=== PATIENT | female | born 1995 | race Caucasian/White ===

== ENCOUNTER 2018-01-04 20:19 | Emergency (ER) | payer MEDICAID ==
--- NOTE | 2018-01-04 21:28 | ER Document Report ---
ED General - General Chief Complaint: Abdominal cramps, back pain, leg cramps, weak Stated Complaint: ABDOMINAL CRAMPING Time Seen by Provider: 01/04/18 21:20 Notes: The patient is a 22-year-old female, (stillborn at 38 weeks), possibly 8 weeks , presents with pain in her right buttocks and tingling down the back of her right upper leg. She is also having diffuse cramping and feels abdominal cramping. Patient has not had an ultrasound confirming an IUP, but denies vaginal bleeding or discharge. She denies fevers, nausea, vomiting, rash , headaches, difficulty walking or back injury. TRAVEL OUTSIDE OF THE [place] IN LAST 30 DAYS: No - Related Data Allergies/Adverse Reactions: No Known Allergies Allergy (Unverified 07/16/16 18:02) Past Medical History - General Information source: Patient - Social History Smoking Status: Unknown if Ever Smoked Family History: Reviewed & Not Pertinent Past Surgical History: Reports: Hx Cholecystectomy Review of Systems - Review of Systems Notes: REVIEW OF SYSTEMS: CONSTITUTIONAL: -fevers, -chills EENT: -eye pain, -difficulty swallowing, -nasal congestion CARDIOVASCULAR: -chest pain, -syncope. RESPIRATORY: -cough, -SOB GASTROINTESTINAL: +abdominal cramping, -nausea, -vomiting, -diarrhea GENITOURINARY: -dysuria, -hematuria MUSCULOSKELETAL: +right buttock pain, +myalgias, -back pain, -neck pain SKIN: -rash or skin lesions. HEMATOLOGIC: -easy bruising or bleeding. LYMPHATIC: -swollen, enlarged glands. NEUROLOGICAL: -altered mental status or loss of consciousness, -headache, - neurologic symptoms PSYCHIATRIC: -anxiety, -depression. ALL OTHER SYSTEMS REVIEWED AND NEGATIVE. Physical Exam - Vital signs Vitals: Temp Pulse BP Pulse Ox 98.5 F 73 123/66 100 01/04/18 20:57 01/04/18 20:57 01/04/18 20:57 01/04/18 20:57 - Notes Notes: PHYSICAL EXAMINATION: GENERAL: Well-appearing, well-nourished and in no acute distress. HEAD: Atraumatic, normocephalic. EYES: Pupils equal round and reactive to light, extraocular movements intact, sclera anicteric, conjunctiva are normal. ENT: nares patent, oropharynx clear without exudates. Moist mucous membranes. NECK: Normal range of motion, supple without lymphadenopathy LUNGS: Breath sounds clear to auscultation bilaterally and equal. No wheezes rales or rhonchi. HEART: Regular rate and rhythm without murmurs ABDOMEN: Soft, nontender, normoactive bowel sounds. No guarding, no rebound. No masses appreciated. EXTREMITIES: Normal range of motion, no pitting or edema. No cyanosis. BACK: Tenderness over right SI joint. No midline tenderness. NEUROLOGICAL: Cranial nerves grossly intact. Normal speech, normal gait. Normal sensory and motor exams. PSYCH: Normal mood, normal affect. SKIN: Warm, Dry, normal turgor, no rashes or lesions noted. Course - Re-evaluation Re-evalutation: Patient appears well and is in no acute distress. Attempted bedside ultrasound to assess for intrauterine fetus because she said she was 8 weeks , however no IUP was able to be visualized. Her beta hCG is only 1000. Transvaginal ultrasound ordered to look for possible ectopic . Transvaginal ultrasound does not show a confirmed IUP, but this may be due to early . Instructed patient that she must follow-up in 2 days for repeat beta-hCG and ultrasound. Also instructed her to return earlier if she notices increasing abdominal pain or any other concerns. Patient's back pain is most likely related to SI joint inflammation leading to mild sciatica. Blood work and urine are unremarkable. - Vital Signs Vital signs: Temp Pulse Resp BP Pulse Ox 98.5 F 73 123/66 100 01/04/18 20:57 01/04/18 20:57 01/04/18 20:57 01/04/18 20:57 - Laboratory Result Diagrams: 01/04/18 21:30 01/04/18 21:30 Laboratory results interpreted by me: 01/04/18 01/04/18 01/04/18 21:30 21:30 21:45 Hgb 11.7 L Hct 34.8 L RDW 14.5 H Beta HCG, Quant 1021.30 H Urine Urobilinogen 2.0 H Ur Leukocyte Esterase SMALL H Urine HCG, Qual POSITIVE H - Diagnostic Test Radiology reviewed: Image reviewed, Reports reviewed Radiology results interpreted by me: Transvaginal US: No IUP identified. Discharge - Discharge Clinical Impression: Abdominal cramping affecting , Myalgia, SI (sacroiliac) joint inflammation Condition: Stable Disposition: HOME, SELF-CARE Additional Instructions: You must return in 48 hours for a repeat blood test and ultrasound to confirm that you have an intrauterine . Return to the ER sooner if you notice worsening abdominal pain or any other concerns. Take Tylenol and use Lidoderm patches to help out with your buttocks pain. : You are . care is best started as early in as possible. If you're unsure about continuing this , you should discuss this with your physician or with meter inspector at [facility]. You should take only medications approved by your physician. Acetaminophen can safely be taken for minor pains. As a rule, medication for chronic conditions such as asthma or seizures can safely be continued. You should discuss with the physician every medicine you take. Any regular exercise program can be continued. Talk to your physician, however, before engaging in competitive or demanding sports. Alcohol, smoking, and "street drugs" are dangerous to your baby. Cocaine is especially dangerous. Don't use any illicit drugs! THREATENED MISCARRIAGE: You have been evaluated for a possible miscarriage. At this time, there is no indication that a miscarriage will occur. Most women with your symptoms will go on to have a perfectly normal baby. However, careful observation will be necessary. A miscarriage occurs when the fetus is abnormal. There is no medicine or treatment for it. You should rest in bed until the symptoms have resolved. Do not douche or have sex for at least a week, or until OK'd by the doctor. Call the doctor or return for re-examination if there is an increase in bleeding or cramping, or passage of tissue. REPEAT BLOOD TEST: At this time, it is uncertain if you have a viable . During the first three months of , the hormone produced from the placenta will steadily rise, usually doubling in value every 2 - 3 days. In order to determine if your is viable and likely be succesful, a repeat of this blood test for the hormone is recommended in 2 - 3 days. An order for this test to be done as an outpatient is being provided. After you have this repeat test done, call your doctor or call us for the results. If the value of the test is increasing as would be expected in a normal , then your is likely to be ok. However, if the value of the test is declining, it will suggest something has happened with your and it will not likely be a successful . FOLLOW-UP CARE: If you have been referred to a physician for follow-up care, call the physician s office for an appointment as you were instructed or within the next two days. If you experience worsening or a significant change in your symptoms (very heavy bleeding with large clots of blood, passage of tissue, more severe abdominal / pelvic pain or cramping, feeling faint or severe weakness, fever, etc.), notify the physician immediately or return to the Emergency Department at any time for re-evaluation. OBSTETRIC-GYNECOLOGIC (OB-BAND INSTRUMENT MAKER) PHYSICIANS IN [place]: [facility] [address] [place], [place] [phone] [facility] [address] [place] [address] [phone] For active duty and dependents diagnosed with a threatened or miscarriage, you should follow up in the following manner: Standard patients who have a local civilian provider should follow up with that provider. Patients of the Family Practice Clinic should call your Team Nurse at 8: 00 am the following morning for further instructions. If you are neither a Standard patient nor a patient of the Family Practice Clinic, you should follow up at the [facility] ([facility]) . Patients already enrolled in the [facility] OB Clinic, Prime patients not assigned to the Family Practice Clinic, and Active Duty patients not assigned to [facility] should report to the [facility] Lab at 8:00 am the next morning that the [facility] OB Clinic is open and then you will be seen in the OB Clinic at 11:00 am. LOW BACK PAIN: Three out of every four people will have an episode of disabling back pain during their lifetime. Most commonly the pain is due to straining of the muscles and ligaments in the low back. Usual treatment includes: (1) Rest on a firm surface. Avoid lying on your stomach. (2) Ice pack the painful area. After a few days, gentle heat may be used intermittently to relax the area, or ice packs can be continued. (3) Medication may be needed -- muscle relaxers and antiinflammatory medicines are commonly used. (4) As the back improves, exercises are prescribed to strengthen the back and abdominal muscles. Your doctor will advise you on the proper care for your back at each stage in your recovery. You may be better in a few days -- or healing may take several weeks. If new symptoms of a "herniated disc" (radiation of pain, numbness, or tingling down the back of the leg or weakness in the leg) occur, you should be re-examined. Further testing may be necessary. ICE PACKS: Apply ice packs frequently against the painful area. Many different schedules are recommended, such as "20 minutes on, 20 minutes off" or "one hour ice, two hours rest." If you need to work, you may need to go longer between ice treatments. You should plan to have the area ice packed AT LEAST one fourth of the time. The ice should be applied over the wrap, tape, or splint, or over a layer of cloth -- not directly against the skin. Some ice bags have a built-in cloth and can be put directly on the skin. WARM PACKS: After approximately two days, apply gentle heat (such as a heating pad or hot water bottle) for about 20 to 30 minutes about every two hours -- at least four times daily. Warmth and elevation will help you make a more rapid recovery , and will ease the pain considerably. Do not use HOT heat, and never apply heat for longer than 30 minutes. The continuous heat can invisibly damage skin and muscles -- even when no burn is seen on the surface. Damaged muscles can make you MORE sore. FOLLOW-UP CARE: If you have been referred to a physician for follow-up care, call the physician s office for an appointment as you were instructed or within the next two days. If you experience worsening or a significant change in your symptoms, notify the physician immediately or return to the Emergency Department at any time for re-evaluation. Prescriptions: Lidocaine [Lidoderm 5% (700 mg) Transdermal Patch] 1 patch TP DAILY #10 adh..patch Referrals: BARTOLOME WILKINS MD [Primary Care Provider] - Follow up as needed DIMITRIS BOSCH MD [ACTIVE STAFF] - Follow up as needed
[2018-01-04] MEDS ORDERED: LIDOCAINE 5% (700 MG) TRANSDERMAL ADH..PATCH TP ONE (21:35)
[2018-01-04] MEDS ORDERED: ACETAMINOPHEN 325 MG TABLET PO ONE (21:35)
[2018-01-04 21:42] LABS: ABSOLUTE BASOPHILS # (AUTO) 0.1 10^3/uL (0.0-0.2); ABSOLUTE EOSINOPHILS # (AUTO) 0.1 10^3/uL (0.0-0.6); ABSOLUTE LYMPHOCYTES (AUTO) 2.7 10^3/uL (0.5-4.7); ABSOLUTE MONOCYTES (AUTO) 0.8 10^3/uL (0.1-1.4); BASOPHILS % (AUTO) 0.8 % (0-2); EOSINOPHILS % (AUTO) 1.1 % (0-6); HEMATOCRIT 34.8 % (36.0-47.0); HEMOGLOBIN 11.7 g/dL (12.0-15.5); LYMPHOCYTES % (AUTO) 35.5 % (13-45); MEAN CORPUSCULAR HEMOGLOBIN 30.3 pg (27.0-33.4); MEAN CORPUSCULAR HGB CONC 33.8 g/dL (32.0-36.0); MEAN CORPUSCULAR VOLUME 90 fl (80-97); MONOCYTES % (AUTO) 10.4 % (3-13); PLATELET COUNT 242 10^3/uL (150-450); RED BLOOD COUNT 3.87 10^6/uL (3.72-5.28); RED CELL DISTRIBUTION WIDTH 14.5 % (11.5-14.0); SEGMENTED NEUTROPHILS % (AUTO) 52.2 % (42-78); TOTAL CELLS COUNTED % (AUTO) 100 %; WHITE BLOOD COUNT 7.7 10^3/uL (4.0-10.5)
[2018-01-04 21:58] LABS: ALANINE AMINOTRANSFERASE 20 U/L (9-52); ALBUMIN 4.2 g/dL (3.5-5.0); ALKALINE PHOSPHATASE 38 U/L (38-126); ANION GAP 12 (5-19); ASPARTATE AMINO TRANSFERASE 17 U/L (14-36); BILIRUBIN,DIRECT 0.1 mg/dL (0.0-0.4); BILIRUBIN,TOTAL 0.4 mg/dL (0.2-1.3); BLOOD UREA NITROGEN 7 mg/dL (7-20); CALCIUM 9.2 mg/dL (8.4-10.2); CARBON DIOXIDE 24 mmol/L (22-30); CHLORIDE 105 mmol/L (98-107); CREATINE KINASE 67 U/L (30-135); GLUCOSE 86 mg/dL (75-110); SODIUM 140.5 mmol/L (137-145); TOTAL PROTEIN 6.7 g/dL (6.3-8.2)
[2018-01-04 22:16] LABS: BILIRUBIN,URINE NEGATIVE (NEGATIVE); GLUCOSE, URINE NEGATIVE (NEGATIVE); KETONES,URINE NEGATIVE (NEGATIVE); LEUKOCYTE ESTERASE,URINE SMALL (NEGATIVE); NITRITE,URINE NEGATIVE (NEGATIVE); PROTEIN,URINE NEGATIVE (NEGATIVE)
[2018-01-04 22:19] LABS: APPEARANCE,URINE SLIGHTLY HAZY; COLOR,URINE YELLOW
[2018-01-04] MEDS ORDERED: LIDOCAINE 5% (700 MG) TRANSDERMAL ADH..PATCH ONE (22:39)
--- NOTE | 2018-01-05 | RADIOLOGY REPORT (SQ) ---
EXAM DESCRIPTION: U/S OB TRANSVAGINAL W/O DOP COMPLETED DATE/TIME: 01/04/2018 11:35 pm REASON FOR STUDY: 8 weeks ? abdominal pain COMPARISON: None. TECHNIQUE: Dynamic and static grayscale images acquired of the pelvis via transvaginal approach and recorded on PACS. Additional selected color Doppler and spectral images recorded. LIMITATIONS: None. FINDINGS: UTERUS: Contour normal. No mass. ENDOMETRIAL STRIPE: No focal or generalized thickening. No masses. CERVIX: No nabothian cysts. RIGHT OVARY: No abnormal masses. RIGHT OVARY DOPPLER: Normal arterial vascular flow without evidence for torsion. LEFT OVARY: Ovary not visualized. LEFT OVARY DOPPLER: Ovary not visualized. FREE FLUID: Trace cul-de-sac free fluid. OTHER: No other significant finding. MEASUREMENTS: UTERUS: 10 x 6 x 6 cm ENDOMETRIAL STRIPE: 11 mm RIGHT OVARY: 3.5 x 2.5 x 2.3 cm LEFT OVARY: Not visualized. IMPRESSION: Nonvisualized left ovary. No IUP identified. TECHNICAL DOCUMENTATION: JOB ID: [id number] [id number] 2010 [employer]- All Rights Reserved Reading location - IP/workstation name: [email or web address]
[2018-01-05 00:24] VITALS: BP 123/70
== END 2018-01-05 00:24 | disposition home or self-care (01) ==
LOC: ER 20:19
DX: M46.1 Sacroiliitis, not elsewhere classified (principal); R10.9 Unspecified abdominal pain; M54.9 Dorsalgia, unspecified; R25.2 Cramp and spasm; R53.1 Weakness; R20.0 Anesthesia of skin; M79.1 Myalgia
CPT/HCPCS: 99284; 36415; 82550; 84702; 85025; 81025; 80053; 81001; 76817; J3490 ×2

== ENCOUNTER 2018-01-06 21:24 | Emergency (ER) | payer MEDICAID ==
--- NOTE | 2018-01-06 22:48 | ER Document Report ---
ED GI/ - General Chief Complaint: Back, neck, flank, neck pain Stated Complaint: NECK AND BACK PAIN Time Seen by Provider: 01/06/18 22:34 Notes: Patient is a 22-year-old female, at 8 weeks gestation by last room. The comes emergency department for chief complaint of lower abdominal pain and cramping. She denies vaginal bleeding but she states she does have vaginal discharge. She denies fever chills, nausea vomiting. She also states she has soreness in her upper back and lower back with sciatic pain which is ongoing. She takes no daily medications, has had a cholecystectomy, was evaluated 2 days ago and told to return because of indeterminate lab and ultrasound. TRAVEL OUTSIDE OF THE [place] IN LAST 30 DAYS: No - Related Data Allergies/Adverse Reactions: No Known Allergies Allergy (Unverified 07/16/16 18:02) Past Medical History - General Information source: Patient - Social History Smoking Status: Never Smoker Frequency of alcohol use: None Drug Abuse: None Lives with: Family Family History: Reviewed & Not Pertinent Renal/ Medical History: Denies: Hx Peritoneal Dialysis Past Surgical History: Reports: Hx Cholecystectomy - Immunizations Immunizations up to date: Yes Hx Diphtheria, Pertussis, Tetanus Vaccination: Yes Review of Systems - Review of Systems Constitutional: No symptoms reported EENT: No symptoms reported Cardiovascular: No symptoms reported Respiratory: No symptoms reported Gastrointestinal: See HPI Genitourinary: No symptoms reported Female Genitourinary: No symptoms reported Musculoskeletal: No symptoms reported Skin: No symptoms reported Hematologic/Lymphatic: No symptoms reported Neurological/Psychological: No symptoms reported Physical Exam - Vital signs Vitals: Temp Pulse Resp BP Pulse Ox 98.2 F 66 18 120/55 L 98 01/06/18 21:41 01/06/18 21:41 01/06/18 21:41 01/06/18 21:41 01/06/18 21:41 Interpretation: Normal - General General appearance: Appears well In distress: None - HEENT Head: Normocephalic, Atraumatic Eyes: Normal Pupils: PERRL - Respiratory Respiratory status: No respiratory distress Chest status: Nontender Breath sounds: Normal Chest palpation: Normal - Cardiovascular Rhythm: Regular Heart sounds: Normal auscultation Murmur: No - Abdominal Inspection: Normal Distension: No distension Bowel sounds: Normal Tenderness: Tender - There is tenderness in the right and left lower abdomen/ pelvic areas, no guarding, slightly worse on the right compared to the left, no rigidity or rebound tenderness Organomegaly: No organomegaly - Genitourinary External exam: Normal Speculum exam: Cervix closed, Vaginal discharge - Moderately large amount of whitish vaginal discharge Vaginal bleeding: None Bimanuel exam: No: Cervical motion tender - Back Back: Normal, Nontender. No: Tender - Extremities General upper extremity: Normal inspection, Nontender, Normal color, Normal ROM , Normal temperature General lower extremity: Normal inspection, Nontender, Normal color, Normal ROM , Normal temperature, Normal weight bearing. No: Jasbir's sign - Neurological Neuro grossly intact: Yes Cognition: Normal Orientation: AAOx4 [place] Coma Scale Eye Opening: Spontaneous Marija Coma Scale Verbal: Oriented Marija Coma Scale Motor: Obeys Commands [place] Coma Scale Total: 15 Speech: Normal Motor strength normal: LUE, RUE, LLE, RLE Sensory: Normal - Psychological Associated symptoms: Normal affect, Normal mood - Skin Skin Temperature: Warm Skin Moisture: Dry Skin Color: Normal Course - Re-evaluation Re-evalutation: Patient is well-appearing, calm, she has tenderness in the lower abdomen/pelvic areas on both sides, slightly worse on the right, no guarding, rigidity, rebound tenderness. Exam does not suggest acute abdomen. Patient requires no pain medication other than a Lidoderm patch for her right buttock for her sciatic pain. Afebrile, no tachycardia, no hypotension. Pelvic examination shows moderately large amount of whitish discharge, no cervical motion tenderness. Wet mount shows 3+ bacteria and 2+ white blood cells, gonorrhea and Chlamydia negative, trichomonas negative. Consistent with bacterial vaginosis. Patient will be treated with Flagyl for this. HCG increased from 1000 to 1400s, nonspecific. Ultrasound showing questionable IUP but not definite, still cannot rule out ectopic or poorly progressing . I called and spoke with Dr. Oconnor for follow-up, Dr. Oconnor took the patient' s name and states that she will call the office to set up her appointment, instructed the patient to call tomorrow to have this confirmed, patient will be seen closely for additional evaluation and management. I discussed this with patient and significant other detail, discussed results, discussed treatment, discussed return precautions. They state understanding and agreement. - Vital Signs Vital signs: Temp Pulse Resp BP Pulse Ox 98.2 F 66 18 120/55 L 98 01/06/18 21:41 01/06/18 21:41 01/06/18 21:41 01/06/18 21:41 01/06/18 21:41 - Laboratory Result Diagrams: 01/06/18 22:50 01/06/18 22:50 Laboratory results interpreted by me: 01/06/18 01/06/18 01/06/18 22:50 22:50 22:50 RBC 3.70 L Hgb 11.0 L Hct 33.1 L RDW 14.3 H Alkaline Phosphatase 37 L Beta HCG, Quant 1471.90 H Urine Urobilinogen 2.0 H Discharge - Discharge Clinical Impression: Abdominal cramping affecting , Vaginal discharge Condition: Stable Disposition: HOME, SELF-CARE Additional Instructions: Your hormone did increase but there is still not a definite in the uterus. It is unclear if this is still early normal , abnormally progressing , or an ectopic . I spoke to Dr. Oconnor, ELEMENT[employer] S[employer] TE[employer]ER'S AIDE, she will be calling the office to set up an appointment for you, please call the office your self as well tomorrow with the listed number to set up your follow-up to arrange for additional management. You have bacterial vaginosis, take Flagyl as prescribed to completion. Return to the ER if you worsen including severe pain, vomiting, fever, vaginal bleeding, passing out, or any other concerning symptoms. Prescriptions: Metronidazole [Flagyl 500 mg Tablet] 500 mg PO BID #14 tablet Referrals: [facility] [Provider Group] - 01/07/18
[2018-01-06 23:00] LABS: ABSOLUTE BASOPHILS # (AUTO) 0.1 10^3/uL (0.0-0.2); ABSOLUTE EOSINOPHILS # (AUTO) 0.1 10^3/uL (0.0-0.6); ABSOLUTE MONOCYTES (AUTO) 0.8 10^3/uL (0.1-1.4); ABSOLUTE NEUT (AUTO) 3.8 10^3/uL (1.7-8.2); BASOPHILS % (AUTO) 0.7 % (0-2); EOSINOPHILS % (AUTO) 1.4 % (0-6); HEMATOCRIT 33.1 % (36.0-47.0); LYMPHOCYTES % (AUTO) 38.4 % (13-45); MEAN CORPUSCULAR HEMOGLOBIN 29.8 pg (27.0-33.4); MEAN CORPUSCULAR HGB CONC 33.3 g/dL (32.0-36.0); MEAN CORPUSCULAR VOLUME 89 fl (80-97); MONOCYTES % (AUTO) 9.9 % (3-13); PLATELET COUNT 226 10^3/uL (150-450); RED CELL DISTRIBUTION WIDTH 14.3 % (11.5-14.0); SEGMENTED NEUTROPHILS % (AUTO) 49.6 % (42-78); TOTAL CELLS COUNTED % (AUTO) 100 %; WHITE BLOOD COUNT 7.7 10^3/uL (4.0-10.5)
[2018-01-06 23:15] LABS: ALANINE AMINOTRANSFERASE 21 U/L (9-52); ALBUMIN 3.9 g/dL (3.5-5.0); ALKALINE PHOSPHATASE 37 U/L (38-126); ANION GAP 9 (5-19); ASPARTATE AMINO TRANSFERASE 15 U/L (14-36); BILIRUBIN,TOTAL 0.2 mg/dL (0.2-1.3); BLOOD UREA NITROGEN 11 mg/dL (7-20); CALCIUM 9.3 mg/dL (8.4-10.2); CARBON DIOXIDE 24 mmol/L (22-30); CHLORIDE 105 mmol/L (98-107); GLUCOSE 95 mg/dL (75-110); POTASSIUM 4.1 mmol/L (3.6-5.0); TOTAL PROTEIN 6.3 g/dL (6.3-8.2)
[2018-01-06 23:16] LABS: AMORPHOUS SEDIMENT,URINE TRACE /HPF; APPEARANCE,URINE SLIGHTLY-CLOUDY; BILIRUBIN,URINE NEGATIVE (NEGATIVE); COLOR,URINE YELLOW; GLUCOSE, URINE NEGATIVE (NEGATIVE); KETONES,URINE NEGATIVE (NEGATIVE); LEUKOCYTE ESTERASE,URINE NEGATIVE (NEGATIVE); NITRITE,URINE NEGATIVE (NEGATIVE); PROTEIN,URINE NEGATIVE (NEGATIVE); URINE SPECIFIC GRAVITY 1.026
[2018-01-06 23:56] LABS: BACTERIA (WET MOUNT) 3+ BACTERIA SEEN; RBCS (WET MOUNT) NO RBCS SEEN; T.VAGINALIS (WET MOUNT) NO TRICHOMONAS SEEN; WBCS (WET MOUNT) 2+ WBCS SEEN; YEAST (WET MOUNT) NO YEAST SEEN
[2018-01-07] MEDS ORDERED: LIDOCAINE 5% (700 MG) TRANSDERMAL ADH..PATCH TP ONE (00:05)
--- NOTE | 2018-01-07 01:05 | RADIOLOGY REPORT (SQ) ---
EXAM DESCRIPTION: U/S OB TRANSVAG W/DOPPLER CLINICAL HISTORY: 22 years, Female, evaluate lower abd pain and early COMPARISON: 01.04.18 TECHNIQUE: Transvaginal. LIMITATIONS: None. FINDINGS: No definite intrauterine discerned. There is a possible 0.3 cm intrauterine gestational sac with a questionable yolk sac; if viable iterative would correspond with a gestational age of five weeks and zero days. No cardiac activity. Normal appearing 3.4 cm right ovary with likely hypoechoic corpus luteal cyst measuring 2.4 cm. Left ovarian fossa appears unremarkable; left ovary is not directly visualized. Trace fluid in posterior cul-de-sac. IMPRESSION: No definite intrauterine . Differential diagnosis includes early intrauterine gestational sac, ongoing gestational loss, or occult ectopic gestation. Recommend 48 to 72 hours laboratory/sonographic surveillance, as clinically warranted.
[2018-01-07 01:11] LABS: CHLAM PCR NOT DETECTED (NOT DETECT); GON PCR NOT DETECTED (NOT DETECT)
[2018-01-07] MEDS ORDERED: METRONIDAZOLE 500 MG TABLET PO ONE (02:07)
[2018-01-07 02:24] VITALS: BP 125/62
== END 2018-01-07 02:30 | disposition home or self-care (01) ==
LOC: ER 21:24
DX: O26.891 Other specified pregnancy related conditions, first trimester (principal); R10.30 Lower abdominal pain, unspecified; N89.8 Other specified noninflammatory disorders of vagina; O99.89 Other specified diseases and conditions complicating pregnancy, childbirth and the puerperium; M54.30 Sciatica, unspecified side; Z3A.08 8 weeks gestation of pregnancy; Z90.49 Acquired absence of other specified parts of digestive tract
CPT/HCPCS: 99284; 36415; 87210; 84702; 85025; 80053; 81001; 87491; 87591; 76817; 93976; J3490 ×2

== ENCOUNTER → 2018-01-12 | Outpatient (CLI) | payer MEDICAID | LOC: OD 12:37 | PROVIDERS: ATTEND Midwife | DX: O36.80X0 Pregnancy with inconclusive fetal viability, not applicable or unspecified (principal); N91.1 Secondary amenorrhea | CPT/HCPCS: 36415; 84702 ==

== ENCOUNTER 2018-01-13 16:46 | Emergency (ER) | payer MEDICAID ==
--- NOTE | 2018-01-13 18:00 | ER Document Report ---
ED Medical Screen (RME) - General Chief Complaint: Lower Abdominal Pain Stated Complaint: VAGINAL DISCHARGE Time Seen by Provider: 01/13/18 17:57 Notes: RME DISCLOSURE I have seen this patient as part of a Rapid Medical Evaluation and, if applicable, placed any initially appropriate orders. The patient will be seen and fully evaluated, including a full history and physical exam, by a provider ( in Main ED or Fast Track) when a room becomes available. 22-year-old female here with complaints of intermittent lower abdominal cramping and vaginal bleeding ongoing "for the past few weeks". Per chart review, she has been seen here multiple times and has had 2 ultrasounds that have not shown intrauterine pregnancies. Her hCG level at visit #1 was approximately 1000 and at visit #2 was approximately 1400 late December. She is here today demanding another ultrasound. TRAVEL OUTSIDE OF THE [place] IN LAST 30 DAYS: No - Related Data Allergies/Adverse Reactions: No Known Allergies Allergy (Verified 01/13/18 16:48) Past Medical History Renal/ Medical History: Denies: Hx Peritoneal Dialysis Past Surgical History: Reports: Hx Cholecystectomy - Immunizations Immunizations up to date: Yes Hx Diphtheria, Pertussis, Tetanus Vaccination: Yes Physical Exam - Vital signs Vitals: Temp Pulse Resp BP Pulse Ox 98.8 F 69 16 126/64 H 100 01/13/18 16:51 01/13/18 16:51 01/13/18 16:51 01/13/18 16:51 01/13/18 16:51 Course - Vital Signs Vital signs: Temp Pulse Resp BP Pulse Ox 98.8 F 69 16 126/64 H 100 01/13/18 16:51 01/13/18 16:51 01/13/18 16:51 01/13/18 16:51 01/13/18 16:51
--- NOTE | 2018-01-13 20:20 | ER Document Report ---
ED General - General Chief Complaint: Lower Abdominal Pain Stated Complaint: VAGINAL DISCHARGE Time Seen by Provider: 01/13/18 17:57 Notes: Patient is a 22-year-old female A1 who presents with lower abdominal cramping and requesting a "second opinion" in regards to the status of her . The patient has been seen on 2 prior occasions in this emergency room, had 2 ultrasounds performed as well as repeat hCG levels. She was seen in clinic today by Dr. Guillaume, and an ultrasound performed and was told that she had a nonviable with no cardiac activity. The patient states that they offered her D&C or medical abortive therapy. She states that she was very uncomfortable with this, did not feel that this decision can be made so early in the and believes that there is still a chance that the fetus can develop into a normal baby. She is here requesting another repeat ultrasound as well as a second opinion regarding the status of her child. She does note that she has a mild, intermittent lower abdominal cramping. Nothing improves or worsens the pain. It has been unchanged since onset several weeks ago. She has not had any vaginal bleeding. No fever or constitutional symptoms. Her prior did end in a spontaneous loss of 38 week . TRAVEL OUTSIDE OF THE [place] IN LAST 30 DAYS: No - Related Data Allergies/Adverse Reactions: No Known Allergies Allergy (Verified 01/13/18 16:48) Past Medical History - General Information source: Patient - Social History Smoking Status: Never Smoker Frequency of alcohol use: None Drug Abuse: None Lives with: Spouse/Significant other Family History: Reviewed & Not Pertinent Patient has suicidal ideation: No Patient has homicidal ideation: No Renal/ Medical History: Denies: Hx Peritoneal Dialysis Past Surgical History: Reports: Hx Cholecystectomy - Immunizations Immunizations up to date: Yes Hx Diphtheria, Pertussis, Tetanus Vaccination: Yes Review of Systems - Review of Systems Notes: Constitutional: Negative for fever. HENT: Negative for sore throat. Eyes: Negative for visual changes. Cardiovascular: Negative for chest pain. Respiratory: Negative for shortness of breath. Gastrointestinal: Positive for abdominal pain Musculoskeletal: Negative for back pain. Skin: Negative for rash. Neurological: Negative for headaches, weakness or numbness. 10 point ROS negative except as marked above and in HPI. Physical Exam - Vital signs Vitals: Temp Pulse Resp BP Pulse Ox 98.8 F 69 16 126/64 H 100 01/13/18 16:51 01/13/18 16:51 01/13/18 16:51 01/13/18 16:51 01/13/18 16:51 Interpretation: Normal Notes: PHYSICAL EXAMINATION: GENERAL: Well-appearing, well-nourished and in no acute distress. HEAD: Atraumatic, normocephalic. EYES: Pupils equal round and reactive to light, extraocular movements intact, sclera anicteric, conjunctiva are normal. ENT: nares patent, oropharynx clear without exudates. Moist mucous membranes. NECK: Normal range of motion, supple without lymphadenopathy LUNGS: Breath sounds clear to auscultation bilaterally and equal. No wheezes rales or rhonchi. HEART: Regular rate and rhythm without murmurs ABDOMEN: Soft, no focal abdominal tenderness, normoactive bowel sounds. No guarding, no rebound. No masses appreciated. EXTREMITIES: Normal range of motion, no pitting or edema. No cyanosis. NEUROLOGICAL: No focal neurological deficits. Moves all extremities spontaneously and on command. PSYCH: Appears to be in significant denial about the results that she was provided today. Somewhat anxious, agitated SKIN: Warm, Dry, normal turgor, no rashes or lesions noted. Course - Re-evaluation Re-evalutation: 01/13/18 20:19 Patient's quantitative beta hCG continues to trend upwards although an equivocal range. Patient has already had 2 ultrasounds for this in the last 2 weeks in the ED. Apparently [facility], had a transvaginal us and was told this was a non-viable , offered a dnc or medical therapy. However, she has returned stating that she wants a second opinion regarding the viability of this . She does not have any localized abdominal pain no active bleeding at time of presentation. Patient's abdominal exam is otherwise benign without any focal tenderness. I do not suspect an acute appendicitis, pyelonephritis, cystitis, or bowel obstruction. I have reviewed this case with Dr. Calle, FORENSIC SCIENTIST on-call who has reviewed the sonogram images from today. She states that she is currently 6 weeks but that there is no cardiac activity and that this is almost certainly a nonviable . She states that they plan on seeing the patient again in 1 week for repeat ultrasound and definitive decisions regarding her will be made at that time. 01/13/18 20:46 I have gone to explain the results of today's evaluation to the patient as well as my consultation with Dr. Calle. I also again reviewed that the patient's hormone levels are not uptrending as they should. The patient continued to demand a repeat ultrasound here in the emergency department although she just had an ultrasound several hours ago. I continued to try to explain to this patient that this is not indicated as this would be her fourth ultrasound in the span of less than 2 weeks and that the ultrasound has already determined that this is likely not a viable . I have again reemphasized with the patient that there is a plan in place to have a repeat ultrasound in a 1 week time frame so that we can definitively assess the status of her although again emphasizing it is almost certainly a nonviable . The patient became increasingly agitated stating "I came here for a damn ultrasound give me an ultrasound". I again tried to reemphasize with the patient that I cannot simply order an ultrasound because she wants one especially when we have an ultrasound from less than several hours ago and I have already reviewed the results of this ultrasound with the FORENSIC SCIENTIST team. Patient is very displeased with me as well as the care here in the emergency department today stating only reason she came was for somebody else to do the ultrasound as she feels like [facility] did not do good enough job. I have expressed this patient that I am very sorry for what she is going through, I am sure she is struggling, but that we cannot do anything further to assist with this current likely nonviable and she will need to follow-up as scheduled. Patient began screaming, security has been called and she will be escorted out of the emergency department. - Vital Signs Vital signs: Temp Pulse Resp BP Pulse Ox 98.9 F 80 18 140/70 H 100 01/13/18 21:00 01/13/18 21:00 01/13/18 21:00 01/13/18 21:00 01/13/18 21:00 - Laboratory Laboratory results interpreted by me: 01/13/18 01/13/18 18:05 18:05 Serum HCG, Qual POSITIVE H Beta HCG, Quant 3907.70 H Discharge - Discharge Clinical Impression: Abdominal pain affecting Condition: Good Disposition: HOME, SELF-CARE Additional Instructions: Currently, your ultrasound and labs do suggest that your will likely not develop into a normal . However, I have discussed with Dr. Calle the FORENSIC SCIENTIST today. She has asked that she return to the FORENSIC SCIENTIST clinic in 1 week for repeat ultrasound at which time they can definitively determine whether or not the fetus is progressing into a possible viable . While the chances of this are low, they would like a repeat ultrasound to make sure prior to discussing further options with you. Return if you develop fever , worsening pain, vomiting, or any other symptoms that are worrisome to you.
[2018-01-13 21:04] VITALS: BP 140/70
== END 2018-01-13 21:00 | disposition home or self-care (01) ==
LOC: ER 16:46
DX: O26.93 Pregnancy related conditions, unspecified, third trimester (principal); R10.30 Lower abdominal pain, unspecified; N89.8 Other specified noninflammatory disorders of vagina; Z3A.38 38 weeks gestation of pregnancy; Z90.49 Acquired absence of other specified parts of digestive tract
CPT/HCPCS: 36415; 84702; 84703; 99283

== ENCOUNTER 2018-02-03 13:22 | Emergency (ER) | payer MEDICAID ==
--- NOTE | 2018-02-03 14:04 | ER Document Report ---
ED Medical Screen (RME) - General Chief Complaint: Abdominal Pain Stated Complaint: ABDOMINAL PAIN Time Seen by Provider: 02/03/18 13:50 Notes: RME DISCLOSURE I have seen this patient as part of a Rapid Medical Evaluation and, if applicable, placed any initially appropriate orders. The patient will be seen and fully evaluated, including a full history and physical exam, by a provider ( in Main ED or Fast Track) when a room becomes available. 22-year-old female currently at less than 10 weeks gestation with a nonviable (per her PLUMBER'S ASSISTANT) here today requesting "a second opinion". She is asking for an hCG level however she has an appointment tomorrow with her PLUMBER'S ASSISTANT but she tells me "I do not know if I am going to go to the appointment" but cannot give me a reason why. She is well-known to this emergency department for demanding numerous ultrasounds within a 24-hour period. Her last visit, she started screaming at the provider and had to be escorted out of the hospital by security. Today she is demanding and hCG checked multiple times even after being told that her is considered nonviable. Also explained that she could have an hCG requested by her PLUMBER'S ASSISTANT tomorrow. I have performed a medical screening exam that is federally obligated and she does not currently have an emergency medical condition. TRAVEL OUTSIDE OF THE [place] IN LAST 30 DAYS: No - Related Data Allergies/Adverse Reactions: No Known Allergies Allergy (Verified 02/03/18 13:28) Past Medical History - Social History Chew tobacco use (# tins/day): No Frequency of alcohol use: None Drug Abuse: None Renal/ Medical History: Denies: Hx Peritoneal Dialysis Past Surgical History: Reports: Hx Cholecystectomy - Immunizations Immunizations up to date: Yes Hx Diphtheria, Pertussis, Tetanus Vaccination: Yes Physical Exam - Vital signs Vitals: Temp Pulse Resp BP Pulse Ox 97.9 F 65 16 120/60 100 02/03/18 13:31 02/03/18 13:31 02/03/18 13:31 02/03/18 13:31 02/03/18 13:31 Course - Vital Signs Vital signs: Temp Pulse Resp BP Pulse Ox 97.9 F 65 16 120/60 100 02/03/18 13:31 02/03/18 13:31 02/03/18 13:31 02/03/18 13:31 02/03/18 13:31
[2018-02-03 14:30] LABS: AMORPHOUS SEDIMENT,URINE TRACE /HPF; APPEARANCE,URINE SLIGHTLY-CLOUDY; BILIRUBIN,URINE NEGATIVE (NEGATIVE); COLOR,URINE YELLOW; GLUCOSE, URINE NEGATIVE (NEGATIVE); KETONES,URINE NEGATIVE (NEGATIVE); LEUKOCYTE ESTERASE,URINE NEGATIVE (NEGATIVE); NITRITE,URINE NEGATIVE (NEGATIVE); PROTEIN,URINE NEGATIVE (NEGATIVE); URINE SPECIFIC GRAVITY 1.018; UROBILINOGEN,URINE NEGATIVE mg/dL (<2.0)
--- NOTE | 2018-02-03 15:52 | ER Document Report ---
ED GI/ - General Chief Complaint: Abdominal Pain Stated Complaint: ABDOMINAL PAIN Time Seen by Provider: 02/03/18 13:50 Mode of Arrival: Ambulatory Information source: Patient TRAVEL OUTSIDE OF THE [place] IN LAST 30 DAYS: No - HPI Patient complains to provider of: Vaginal bleeding Notes: 02/03/18 15:47 Patient is here requesting a quantitative hCG to determine if she should have a D&C performed tomorrow. Patient has been seen in the emergency department multiple times as well as the OB office multiple times with this . On her last visit here she was here for second opinion to get another ultrasound although she had just had an ultrasound performed in the office that showed a pole with a 6 week size and no cardiac activity. She was told that the would not progress. She came to the ER at that time to get a second opinion. Since that time she is followed up back in the OBs office. She had an ultrasound done today in the office that shows 2 yolk sacs, a pole but still no cardiac activity. Was recommended that she have a D&C performed if she wanted because she was having vaginal bleeding. She has a D&C scheduled for tomorrow, but wants to know what her hCG level is that was drawn in the office earlier today to help her determine if she should have it done or not. She has some mild vaginal bleeding. She denies any severe pain. She denies any nausea, vomiting, diarrhea. No fevers. She has no other complaints at this time. - Related Data Allergies/Adverse Reactions: iron infusion Allergy (Severe, Uncoded 02/03/18 15:19) Hives Past Medical History - Social History Smoking Status: Never Smoker Chew tobacco use (# tins/day): No Frequency of alcohol use: None Drug Abuse: None Family History: Reviewed & Not Pertinent Patient has suicidal ideation: No Patient has homicidal ideation: No Renal/ Medical History: Denies: Hx Peritoneal Dialysis Past Surgical History: Reports: Hx Cholecystectomy - Immunizations Immunizations up to date: Yes Hx Diphtheria, Pertussis, Tetanus Vaccination: Yes Review of Systems - Review of Systems -: Yes All other systems reviewed and negative Physical Exam - Vital signs Vitals: Temp Pulse Resp BP Pulse Ox 97.9 F 65 16 120/60 100 02/03/18 13:31 02/03/18 13:31 02/03/18 13:31 02/03/18 13:31 02/03/18 13:31 - Notes Notes: GENERAL: alert, cooperative, nontoxic, no distress. HEAD: normocephalic, atraumatic EYES: conjunctiva pink without discharge, no external redness or swelling. EARS: no external swelling, no external redness NOSE: atraumatic, no external swelling MOUTH/THROAT: mucous membranes moist and pink, posterior pharynx without erythema, swelling, exudate. No trismus or drooling. NECK: soft, supple, full range of motion, no meningismus. CHEST: no distress, lungs clear and equal throughout. No wheezing, rales, rhonchi. CARDIAC: regular rate and rhythm, no murmur, normal capillary refill, normal pulses. No peripheral edema noted. ABDOMEN: Soft, nontender. BACK: full range of motion, no CVA tenderness. EXTREMITIES: full range of motion of all extremities. No redness, no swelling. NEURO: alert and oriented x 3, no focal deficits, full range of motion of all extremities. PYSCH: appropriate mood, affect. Patient is cooperative. SKIN: pink, warm, dry, no rash. Course - Re-evaluation Re-evalutation: 02/03/18 15:50 Patient is nontoxic appearing stable vitals. She is here to find out what her hCG level is that [facility] to help her determine if she should have a D&C performed tomorrow. 7 some mild vaginal spotting. She had an ultrasound today at the office showing 2 yolk sacs with a pole but no cardiac motion. She had an ultrasound 3 weeks prior that showed a pole at 6 weeks with no cardiac activity. It is thought that this is very likely to be a nonviable . She was concerned because now they are 2 yolk sacs which she did not have before and is concerned that she may have a new and did not want to have a D&C performed if she possibly has a new that is viable. I have spoke with Dr. Esparza who is on-call for the OB, he was able to go over her ultrasound results with me. He does not have the hCG level that was drawn today as this will be reported tomorrow. His recommendation was that if the patient is concerned that all that she can always wait and not have the D&C performed and allow the to terminate spontaneously. I have given all this information to the patient. I explained that I do not have access to her hCG that was drawn earlier today as it is not done. I explained that they will be able to give her this level tomorrow prior to her having the D&C. She could certainly wait and see if she has a spontaneous and did not have a D&C if she is concerned at all. She verbalized an understanding of all this and will be discharged home with instructions to follow-up with her OB as scheduled tomorrow morning. The patient's emergency department workup and current diagnosis were explained to the patient and or family. Follow-up instructions were provided. Medications if prescribed were discussed. Instructions for when to return to the emergency department including specific worrisome symptoms were discussed with the patient and/or family. - Vital Signs Vital signs: Temp Pulse Resp BP Pulse Ox 97.9 F 65 16 120/60 100 02/03/18 13:31 02/03/18 13:31 02/03/18 13:31 02/03/18 13:31 02/03/18 13:31 - Laboratory Laboratory results interpreted by me: 02/03/18 14:16 Urine Blood SMALL H Urine Ascorbic Acid 20 H Discharge - Discharge Clinical Impression: , inevitable Condition: Stable Disposition: HOME, SELF-CARE Instructions: Miscarriage ([facility]) Additional Instructions: Follow-up with your SMASH FIXER as scheduled tomorrow. Follow up sooner for worsening symptoms, high fever, persistent vomiting, or for any further concerns. Referrals: EDITA BOYD MD [ACTIVE STAFF] - Follow up as needed
[2018-02-03 16:03] VITALS: BP 124/70
== END 2018-02-03 16:02 | disposition home or self-care (01) ==
LOC: ER 13:22
DX: O20.0 Threatened abortion (principal); Z3A.00 Weeks of gestation of pregnancy not specified
CPT/HCPCS: 81001; 99284

== ENCOUNTER 2018-02-04 16:14 | Emergency (ER) | payer MEDICAID ==
--- NOTE | 2018-02-04 17:47 | ER Document Report ---
ED GI/ - General Chief Complaint: Vaginal Bleeding Stated Complaint: VAGINAL BLEEDING Time Seen by Provider: 02/04/18 17:14 Mode of Arrival: Ambulatory Information source: Patient Notes: 22-year-old female complaining of heavy vaginal bleeding passing clots since an ultrasound was done this afternoon at [facility]-Dr. Guillaume. She was supposed to have a D&C today for distal portion, but she decided against it because there was a possibility of another gestational sac and pole. At this point because of the amount of bleeding she does want a D&C. And she feels lightheaded. Vital signs : hemodynamically stable at this time. She is planing of some low back pain and pelvic cramping. Patient has a history of hemorrhaging after a stillbirth at 38 weeks. TRAVEL OUTSIDE OF THE [place] IN LAST 30 DAYS: No - Related Data Allergies/Adverse Reactions: iron infusion Allergy (Severe, Uncoded 02/03/18 15:19) Hives Past Medical History - General Information source: Patient - Social History Smoking Status: Never Smoker Frequency of alcohol use: None Drug Abuse: None Lives with: Family Family History: Reviewed & Not Pertinent - Medical History Medical History: Negative Renal/ Medical History: Denies: Hx Peritoneal Dialysis Past Surgical History: Reports: Hx Cholecystectomy - Immunizations Immunizations up to date: Yes Hx Diphtheria, Pertussis, Tetanus Vaccination: Yes Review of Systems - Review of Systems Constitutional: No symptoms reported EENT: No symptoms reported Cardiovascular: No symptoms reported Respiratory: No symptoms reported Gastrointestinal: No symptoms reported Genitourinary: No symptoms reported Female Genitourinary: See HPI Musculoskeletal: No symptoms reported Skin: No symptoms reported Hematologic/Lymphatic: No symptoms reported Neurological/Psychological: No symptoms reported Physical Exam - Vital signs Vitals: Temp Pulse Resp BP Pulse Ox 99.3 F 69 18 118/65 98 02/04/18 16:46 02/04/18 16:46 02/04/18 16:46 02/04/18 16:46 02/04/18 16:46 Interpretation: Normal - General General appearance: Appears well, Alert In distress: None - HEENT Head: Normocephalic, Atraumatic Eyes: Normal Conjunctiva: Normal Pupils: PERRL Pharynx: Normal Neck: Supple. No: Lymphadenopathy, Thyromegally - Respiratory Respiratory status: No respiratory distress Chest status: Nontender Breath sounds: Normal Chest palpation: Normal - Cardiovascular Rhythm: Regular Heart sounds: Normal auscultation Murmur: No - Abdominal Inspection: Normal Distension: No distension Bowel sounds: Normal Tenderness: Tender - mild pelvis Organomegaly: No organomegaly - Genitourinary Vaginal bleeding: Heavy - with clots, could not see the OS - Back Back: Normal, Nontender. No: CVA tenderness - Extremities General upper extremity: Normal inspection, Nontender, Normal color, Normal ROM , Normal temperature General lower extremity: Normal inspection, Nontender, Normal color, Normal ROM , Normal temperature, Normal weight bearing. No: Jasbir's sign - Neurological Neuro grossly intact: Yes Cognition: Normal Orientation: AAOx4 Kasbeer Coma Scale Eye Opening: Spontaneous Marija Coma Scale Verbal: Oriented Kasbeer Coma Scale Motor: Obeys Commands Marija Coma Scale Total: 15 Speech: Normal Motor strength normal: LUE, RUE, LLE, RLE Sensory: Normal - Psychological Associated symptoms: Normal affect, Normal mood - Skin Skin Temperature: Warm Skin Moisture: Dry Skin Color: Normal Skin irregularity: negative: Rash Course - Re-evaluation Re-evalutation: 02/04/18 18:14 Dr. Boyd will come down and see the patient I was unable to visualize office because the amount of hemorrhaging and clots that are coming out and in the vaginal vault. 02/04/18 18:38 dr boyd came to pt room, and retrieved the presumed gestational sac when she got to the OS, beside US to be done by US tech, dr. boyd rec. cytotec 0.4mg po, and also I ordered morphine and zofran. Will call dr. boyd with the results of the US. looking for retained POC etc. 02/04/18 18:47 Gestational sac sent to the lab for evaluation histology 02/04/18 19:10 Transfer of care to Yonis FARRELL at the bedside. She is still pending the ultrasound. Vital signs are stable. - Vital Signs Vital signs: Temp Pulse Resp BP Pulse Ox 99.3 F 69 10 L 115/72 98 02/04/18 16:46 02/04/18 16:46 02/04/18 18:58 02/04/18 18:58 02/04/18 18:58 - Laboratory Result Diagrams: 02/04/18 18:47 Discharge - Discharge Clinical Impression: Spontaneous Condition: Good Disposition: HOME, SELF-CARE Instructions: Miscarriage ([facility]), Vaginal Bleeding ([facility]) Additional Instructions: no sex until cleared by OBGYN return to er if increased bleeding, pain, fever, dizziness Prescriptions: Hydrocodone Bit/Acetaminophen [Hydrocodon-Acetaminophen 5-325] 1 each PO Q4HP PRN #15 tablet PRN Reason: Referrals: EDITA BOYD MD [ACTIVE STAFF] - Follow up tomorrow
[2018-02-04] MEDS ORDERED: NORMAL SALINE 1000 ML 1,000 ML IV ONE ×2 (18:12→21:03)
[2018-02-04] MEDS ORDERED: MORPHINE SULFATE 10 MG/ML INJ IV ONE (18:35)
[2018-02-04] MEDS ORDERED: ONDANSETRON HCL INJ/PF 4 MG/2 ML SDV IV ONE (18:35)
[2018-02-04] MEDS ORDERED: MISOPROSTOL 0.2 MG TABLET PO ONE (18:35)
[2018-02-04 19:06] LABS: ABSOLUTE BASOPHILS # (AUTO) 0.1 10^3/uL (0.0-0.2); ABSOLUTE EOSINOPHILS # (AUTO) 0.1 10^3/uL (0.0-0.6); ABSOLUTE LYMPHOCYTES (AUTO) 1.8 10^3/uL (0.5-4.7); ABSOLUTE MONOCYTES (AUTO) 0.5 10^3/uL (0.1-1.4); ABSOLUTE NEUT (AUTO) 4.1 10^3/uL (1.7-8.2); BASOPHILS % (AUTO) 0.8 % (0-2); EOSINOPHILS % (AUTO) 0.8 % (0-6); HEMATOCRIT 33.8 % (36.0-47.0); HEMOGLOBIN 11.3 g/dL (12.0-15.5); LYMPHOCYTES % (AUTO) 27.4 % (13-45); MEAN CORPUSCULAR HEMOGLOBIN 30.5 pg (27.0-33.4); MEAN CORPUSCULAR HGB CONC 33.6 g/dL (32.0-36.0); MEAN CORPUSCULAR VOLUME 91 fl (80-97); MONOCYTES % (AUTO) 7.1 % (3-13); PLATELET COUNT 205 10^3/uL (150-450); RED BLOOD COUNT 3.71 10^6/uL (3.72-5.28); RED CELL DISTRIBUTION WIDTH 14.5 % (11.5-14.0); SEGMENTED NEUTROPHILS % (AUTO) 63.9 % (42-78); TOTAL CELLS COUNTED % (AUTO) 100 %; WHITE BLOOD COUNT 6.4 10^3/uL (4.0-10.5)
[2018-02-04 19:39] LABS: PARTIAL THROMBOPLASTIN TIME 35.5 SEC (23.5-35.8); PROTHROMBIN TIME 13.9 SEC (11.4-15.4)
[2018-02-04] MEDS ORDERED: KETOROLAC TROMETHAMINE INJ/PF 30 MG/1 ML SDV IV ONE (22:05)
--- NOTE | 2018-02-04 22:48 | RADIOLOGY REPORT (SQ) ---
EXAM DESCRIPTION: U/S OB TRANSVAGINAL W/O DOP COMPLETED DATE/TIME: 02/04/2018 10:11 pm REASON FOR STUDY: Check for retained products at the bedside: Portab COMPARISON: 01/04/2018 TECHNIQUE: Transvaginal static and realtime grayscale images acquired of the pelvis. Additional duglas cted spectral and color Doppler images recorded. All images stored on PACs. bHCG: Not drawn LIMITATIONS: None. FINDINGS: No intrauterine gestation is appreciated. UTERUS: There is echogenic material in the lower aspect of the endometrial canal. CERVICAL LENGTH: 2.8 cm. Closed. RIGHT ADNEXA: Ovary not seen. No adnexal free fluid. No adnexal masses. LEFT ADNEXA: Ovary not seen. No adnexal free fluid. No adnexal masses. FREE FLUID: None. OTHER: No other significant finding. IMPRESSION: No intrauterine gestation is identified. There is echogenic material in the lower aspec t of the endometrial canal suggesting retained products of conception. TECHNICAL DOCUMENTATION: JOB ID: [id number] [employer]- All Rights Reserved Reading location - IP/workstation name: [email or web address]
[2018-02-04] MEDS ORDERED: HYDROCODONE/ACETAMINOPHEN 5-325 MG (6 TAB/ER DISP) PO PRN (23:12)
[2018-02-04] MEDS ORDERED: ONDANSETRON ODT 4 MG TAB (6 TAB/ER DISP) PO PRN (23:12)
[2018-02-05 00:11] VITALS: BP 113/59
== END 2018-02-05 00:15 | disposition home or self-care (01) ==
LOC: ER 16:14
DX: O03.4 Incomplete spontaneous abortion without complication (principal); R42 Dizziness and giddiness; M54.5 Low back pain; R10.2 Pelvic and perineal pain
CPT/HCPCS: 99284; 96361; 96374; 96375; 86900; 86901; 36415; 86850; 85025; 85610; 85730; 88304 ×2; 76817; J1885; J2270; J2405; J7030

== ENCOUNTER 2018-02-11 06:43 | Day surgery (SDC) | payer MEDICAID ==
[2018-02-11] MEDS ORDERED: ONDANSETRON HCL INJ/PF 4 MG/2 ML SDV ONE (07:58)
[2018-02-11] MEDS ORDERED: OXYTOCIN 10 UNIT/ML VIAL ONE (08:25)
[2018-02-11] MEDS ORDERED: MIDAZOLAM 2 MG/2 ML INJ ONE (08:26)
[2018-02-11] MEDS ORDERED: FENTANYL CITRATE INJ/PF 100 MCG/2 ML AMPUL ONE ×2 (08:26→09:38)
[2018-02-11] MEDS ORDERED: PROPOFOL INJ 200 MG/20 ML VIAL IV ONE (08:27)
[2018-02-11] MEDS ORDERED: ACETAMINOPHEN 100 ML IV ONE (08:27)
--- NOTE | 2018-02-11 09:19 | OPERATIVE REPORT E ---
Operative Report NAME: MAURICIO ZHOU : 1995 AGE: 22Y DATE OF SURGERY: 02/11/2018 ROOM: PREOPERATIVE DIAGNOSIS: Missed AB. POSTOPERATIVE DIAGNOSIS: Missed AB. OPERATION: Suction D and C. SURGEON: Randi BOSCH M.D. ESTIMATED BLOOD LOSS: Less than 25 mL. ANESTHESIA: Sedation. TISSUE REMOVED OR ALTERED: Endometrial and possible parts of conception. PROCEDURE: The patient was placed in a dorsal lithotomy position, prepped and draped in a sterile fashion. The speculum was placed. Cervix was visualized and grasped with a single-toothed tenaculum, sounded to a depth of 12 cm. The cervix was dilated to admit a #8 suction catheter. Suction curettage was performed, followed by sharp curettage, followed by repeat suction. The single-toothed tenaculum was removed and hemostasis was noted. Speculum was removed and the procedure was terminated. She tolerated it well and was taken to recovery in good condition. DICTATING PHYSICIAN: Randi BOSCH M.D. [id number] Y#: [id number] ID: [id number] JOB#: [id number] ACCT: [id number] cc:Randi BOSCH M.D. >
[2018-02-11] MEDS ORDERED: OXYCODONE-ACETAMINOPHEN 5-325 MG TABLET PO PRN (09:25)
[2018-02-11] MEDS ORDERED: ONDANSETRON 4 MG TAB.RAPDIS PO PRN (09:25)
[2018-02-11] MEDS ORDERED: PROMETHAZINE HCL INJ 25 MG/1 ML VIAL IV PRN (09:27)
[2018-02-11] MEDS ORDERED: DIPHENHYDRAMINE HCL 50 MG/ML VIAL IV PRN (09:27)
[2018-02-11] MEDS ORDERED: FENTANYL CITRATE INJ/PF 100 MCG/2 ML AMPUL IV PRN ×3 (09:27)
[2018-02-11] MEDS ORDERED: PROMETHAZINE HCL INJ 25 MG/1 ML VIAL ONE (09:53)
[2018-02-11] MEDS ORDERED: SCOPOLAMINE HYDROBROMIDE 1.5 MG PATCH.TD72 ONE (09:56)
[2018-02-11] MEDS ORDERED: DEXAMETHASONE SOD PHOSPHATE INJ 4 MG/1 ML VIAL ONE (10:00)
[2018-02-11] MEDS ORDERED: LIDOCAINE 2% INJ-PF (20 MG/ML) 2 ML AMPUL ONE (10:00)
[2018-02-11 11:29] VITALS: BP 112/65
[2018-02-11] MEDS ORDERED: IBUPROFEN 800 MG TABLET PO SCH (14:00)
== END 2018-02-11 11:30 | disposition home or self-care (01) ==
LOC: OROUT 06:43
PROVIDERS: ATTEND Obstetrics & Gynecology Gynecology
PROC: 10D17ZZ Extraction of Products of Conception, Retained, Via Natural or Artificial Opening (ICD-10-PCS; principal; 2018-02-11 08:45)
DX: O02.1 Missed abortion (principal); D64.9 Anemia, unspecified; Z11.3 Encounter for screening for infections with a predominantly sexual mode of transmission
CPT/HCPCS: 88305 ×2; 59820; J2250; J1100; J3010; J3490 ×2; J2550; J2405; J2704; J0131; 1965; J2590

== ENCOUNTER 2018-03-20 07:47 | Emergency (ER) | payer OTHER, MEDICAID ==
--- NOTE | 2018-03-20 10:27 | ER Document Report ---
ED General - General Chief Complaint: Leg Pain Stated Complaint: LEFT LEG PAIN Time Seen by Provider: 03/20/18 08:10 Mode of Arrival: Ambulatory Information source: Patient Notes: 22-year-old female presents with complaints of left leg bruising. Patient denies any trauma, notes that she has no DVT or PE risk factors however has been feeling short of breath. Patient notes her knee hurts more than her calf does, patient is able to ambulate with no difficulty Patient has no history of any bleeding disorders TRAVEL OUTSIDE OF THE [place] IN LAST 30 DAYS: No - HPI Onset: Other - 3 days Onset/Duration: Persistent Quality of pain: Achy Severity: Mild Pain Level: 1 Associated symptoms: Body/muscle aches Exacerbated by: Movement Relieved by: Denies Similar symptoms previously: No Recently seen / treated by doctor: No - Related Data Allergies/Adverse Reactions: adhesive tape Allergy (Verified 03/20/18 07:48) latex Allergy (Verified 03/20/18 07:48) iron infusion Allergy (Severe, Uncoded 02/10/18 16:10) Hives Past Medical History - Social History Smoking Status: Current Some Day Smoker Cigarette use (# per day): Yes Chew tobacco use (# tins/day): No Smoking Education Provided: No Frequency of alcohol use: Rare Drug Abuse: None Family History: Reviewed & Not Pertinent Patient has suicidal ideation: No Patient has homicidal ideation: No - Past Medical History Cardiac Medical History: Denies: Hx Coronary Artery Disease, Hx Heart Attack, Hx Hypertension Pulmonary Medical History: Denies: Hx Asthma, Hx Bronchitis, Hx COPD, Hx Pneumonia Neurological Medical History: Denies: Hx Cerebrovascular Accident, Hx Seizures Renal/ Medical History: Denies: Hx Peritoneal Dialysis Musculoskeltal Medical History: Denies Hx Arthritis Past Surgical History: Reports: Hx Cholecystectomy - Immunizations Immunizations up to date: Yes Hx Diphtheria, Pertussis, Tetanus Vaccination: Yes Review of Systems - Review of Systems Notes: REVIEW OF SYSTEMS: CONSTITUTIONAL : Denies fever, chills, or sweats. Denies recent illness. EENT: Denies eye, ear, throat, or mouth pain or symptoms. Denies nasal or sinus congestion or discharge. Denies throat, tongue, or mouth swelling or difficulty swallowing. CARDIOVASCULAR: Denies chest pain. Denies palpitations or racing or irregular heart beat. Denies ankle edema. RESPIRATORY: Denies cough, cold, or chest congestion. Denies shortness of breath, difficulty breathing, or wheezing. GASTROINTESTINAL: Denies abdominal pain or distention. Denies nausea, vomiting , or diarrhea. Denies blood in vomitus, stools, or per rectum. Denies black, tarry stools. Denies constipation. GENITOURINARY: Denies difficulty urinating, painful urination, burning, frequency, blood in urine, or discharge. FEMALE GENITOURINARY: Denies vaginal bleeding, heavy or abnormal periods, irregular periods. Denies vaginal discharge or odor. MUSCULOSKELETAL: admits to left knee pain SKIN: Denies rash, lesions or sores. HEMATOLOGIC : Denies easy bruising or bleeding. LYMPHATIC: Denies swollen, enlarged glands. NEUROLOGICAL: Denies confusion or altered mental status. Denies passing out or loss of consciousness. Denies dizziness or lightheadedness. Denies headache. Denies weakness or paralysis or loss of use of either side. Denies problems with gait or speech. Denies sensory loss, numbness, or tingling. Denies seizures. PSYCHIATRIC: Denies anxiety or stress. Denies depression, suicidal ideation, or homicidal ideation. ALL OTHER SYSTEMS REVIEWED AND NEGATIVE. PHYSICAL EXAMINATION: GENERAL: Well-appearing, well-nourished and in no acute distress. HEAD: Atraumatic, normocephalic. EYES: Pupils equal round and reactive to light, extraocular movements intact, conjunctiva are normal. ENT: Nares patent, oropharynx clear without exudates. Moist mucous membranes. NECK: Normal range of motion, supple without lymphadenopathy LUNGS: Breath sounds clear to auscultation bilaterally and equal. No wheezes rales or rhonchi. HEART: Regular rate and rhythm without murmurs ABDOMEN: Soft, nontender, nondistended abdomen. No guarding, no rebound. No masses appreciated. Female : deferred Musculoskeletal: Normal range of motion, no pitting or edema. No cyanosis. NEUROLOGICAL: Cranial nerves grossly intact. Normal speech, normal gait. Normal sensory, motor exams PSYCH: Normal mood, normal affect. SKIN: bruise to the medial left calf no edema Dictation was performed using [employer] voice recognition software Physical Exam - Vital signs Vitals: Temp Pulse Resp BP Pulse Ox 98.3 F 78 16 114/69 100 03/20/18 07:51 03/20/18 07:51 03/20/18 07:51 03/20/18 07:51 03/20/18 07:51 Course - Re-evaluation Re-evalutation: 03/20/18 15:16 doppler was negative, pt overall looks well, has no dvt pe risk factors, normal vital signs, she is able ot ambulate. I will dc home as nonspecific leg pain After further discussion patient does admit some mild flank and back pain rating down her leg but has no midline tenderness After performing a Medical Screening Examination, I estimate there is LOW risk for EXPANDING OR RUPTURED ABDOMINAL AORTIC ANEURYSM, CAUDA EQUINA SYNDROME, EPIDURAL MASS LESION, or HERNIATED DISK CAUSING SEVERE SPINAL STENOSIS, thus I consider the discharge disposition reasonable. I have reevaluated this patient multiple times and no significant life threatening changes are noted. The patient and I have discussed the diagnosis and risks, and we agree with discharging home and close follow-up. We also discussed returning to the Emergency Department immediately if new or worsening symptoms occur with the understanding that symptoms and presentations can change. We have discussed the symptoms which are most concerning (e.g., saddle anesthesia, urinary or bowel incontinence or retention, changing or worsening pain) that necessitate immediate return. - Vital Signs Vital signs: Temp Pulse Resp BP Pulse Ox 99.6 F 70 14 116/63 98 03/20/18 10:36 03/20/18 10:36 03/20/18 10:36 03/20/18 10:36 03/20/18 10:36 - Diagnostic Test Radiology reviewed: Image reviewed, Reports reviewed Discharge - Discharge Clinical Impression: Left leg pain Condition: Stable Disposition: HOME, SELF-CARE Instructions: Leg Pain Nonspecific ([facility]) Additional Instructions: Follow up with your physician tomorrow for further care or return to the ED IMMEDIATELY if symptoms worsen or new concerns occur. If you cannot afford to follow up with your primary care physician a list of low cost clinics have been provided at the end of your discharge papers as well.
[2018-03-20] MEDS ORDERED: NAPROXEN 250 MG TABLET PO ONE (10:34)
[2018-03-20 10:39] VITALS: BP 116/63
--- NOTE | 2018-03-20 12:10 | XCELERA REPORT ---
[address] [address] Lower Extremity Venous Evaluation Name: MAURICIO ZHOU Age: 22 yrs Gender: Female : 1995 Patient Status: Emergency Patient Location: ER Study Date: 03/20/2018 09:53 AM Procedure: Color flow and duplex imaging bilaterally of the veins of the lower extremities as well as the Common Femoral veins. Reason For Study: left leg bruising pain Ordering Physician: MARTINEZ BUTT Performed By: Carmen Garcia Right Sided Venous Evaluation Normal vessel filling wall to wall, compression and augmentation as well as Colour flow down to the infrageniculate veins. Left Sided Venous Evaluation Normal vessel filling wall to wall, compression and augmentation as well as Colour flow down to the infrageniculate veins. Interpretation Summary No duplex evidence of DVT or obstruction in the bilateral lower extremities. : MARTINEZ BUTT > Horacio Nagy
== END 2018-03-20 10:41 | disposition home or self-care (01) ==
LOC: ER 07:47
DX: S80.12XA Contusion of left lower leg, initial encounter (principal); X58.XXXA Exposure to other specified factors, initial encounter; Z91.048 Other nonmedicinal substance allergy status; M25.562 Pain in left knee; Z91.040 Latex allergy status; Z88.8 Allergy status to other drugs, medicaments and biological substances; F17.210 Nicotine dependence, cigarettes, uncomplicated
CPT/HCPCS: 93971; 99284

== ENCOUNTER 2018-07-13 12:42 | Emergency (ER) | payer OTHER, MEDICAID ==
--- NOTE | 2018-07-13 13:54 | ER Document Report ---
ED GI/ - General Chief Complaint: Urinary Problem Stated Complaint: URINARY PROBLEM Time Seen by Provider: 07/13/18 13:06 Mode of Arrival: Ambulatory Information source: Patient Notes: 22-year-old female presents to ED for complaint of urinary frequency urgency and burning. She states she also has some vaginal itching. She states she has had multiple positive test and other negative. She states she would like a blood test to see if she is . She states she felt like she was starting her period and then it stops and now she is not sure what is going on. She is alert oriented respirations regular and unlabored speaking in full sentences walks with a even steady gait. TRAVEL OUTSIDE OF THE [place] IN LAST 30 DAYS: No - HPI Patient complains to provider of: Other - Patient states she is having urinary frequency urgency burning and vaginal itching. Onset: Other - Over the last couple weeks intermittently Timing/Duration: Intermittent Quality of pain: Burning Severity at maximum: Mild Severity in ED: Mild Pain Level: 2 Menstrual period history: Abnormal : 2 Para: 0 Associated symptoms: Urinary frequency, Urinary urgency, Other - Burning with urination Exacerbated by: Other Relieved by: Denies - Urination Similar symptoms previously: Yes Recently seen / treated by doctor: No - Related Data Allergies/Adverse Reactions: adhesive tape Allergy (Verified 03/20/18 07:48) latex Allergy (Verified 03/20/18 07:48) iron infusion Allergy (Severe, Uncoded 02/10/18 16:10) Hives Past Medical History - General Information source: Patient - Social History Smoking Status: Never Smoker Cigarette use (# per day): No Chew tobacco use (# tins/day): No Smoking Education Provided: No Frequency of alcohol use: None Drug Abuse: None Lives with: Alone Family History: Reviewed & Not Pertinent Patient has suicidal ideation: No Patient has homicidal ideation: No - Past Medical History Cardiac Medical History: Reports: None Pulmonary Medical History: Reports: None EENT Medical History: Reports: None Endocrine Medical History: Reports: None Renal/ Medical History: Reports: Other - 1 miscarriage 1 stillborn Malignancy Medical History: Reports: None GI Medical History: Reports: None Musculoskeletal Medical History: Reports None Skin Medical History: Reports None Psychiatric Medical History: Reports: None Traumatic Medical History: Reports: None Infectious Medical History: Reports: None Past Surgical History: Reports: Hx Cholecystectomy, Hx Dilation and Curettage - 2 - Immunizations Immunizations up to date: Yes Hx Diphtheria, Pertussis, Tetanus Vaccination: Yes Review of Systems - Review of Systems Constitutional: No symptoms reported EENT: No symptoms reported Cardiovascular: No symptoms reported Respiratory: No symptoms reported Gastrointestinal: No symptoms reported Genitourinary: No symptoms reported, Burning, Frequency, Urgency Female Genitourinary: No symptoms reported Musculoskeletal: No symptoms reported Skin: No symptoms reported Hematologic/Lymphatic: No symptoms reported Neurological/Psychological: No symptoms reported -: Yes All other systems reviewed and negative Physical Exam - Vital signs Vitals: Temp Pulse Resp BP Pulse Ox 99.1 F 57 L 16 122/72 100 07/13/18 13:02 07/13/18 13:02 07/13/18 13:02 07/13/18 13:02 07/13/18 13:02 Interpretation: Normal - General General appearance: Appears well, Alert - HEENT Head: Normocephalic, Atraumatic Eyes: Normal Pupils: PERRL - Respiratory Respiratory status: No respiratory distress Chest status: Nontender Breath sounds: Normal Chest palpation: Normal - Cardiovascular Rhythm: Regular Heart sounds: Normal auscultation Murmur: No - Abdominal Inspection: Normal Distension: No distension Bowel sounds: Normal Tenderness: Nontender Organomegaly: No organomegaly - Genitourinary Notes: Patient self swabbed for GC chlamydia - Back Back: Normal, Nontender - Extremities General upper extremity: Normal inspection, Nontender, Normal color, Normal ROM , Normal temperature General lower extremity: Normal inspection, Nontender, Normal color, Normal ROM , Normal temperature, Normal weight bearing. No: Jasbir's sign - Neurological Neuro grossly intact: Yes Cognition: Normal Orientation: AAOx4 Meredith Coma Scale Eye Opening: Spontaneous Marija Coma Scale Verbal: Oriented Meredith Coma Scale Motor: Obeys Commands Marija Coma Scale Total: 15 Speech: Normal Motor strength normal: LUE, RUE, LLE, RLE Sensory: Normal - Psychological Associated symptoms: Normal affect, Normal mood - Skin Skin Temperature: Warm Skin Moisture: Dry Skin Color: Normal Course - Vital Signs Vital signs: Temp Pulse Resp BP Pulse Ox 98.9 F 55 L 16 126/73 H 99 07/13/18 15:14 07/13/18 15:14 07/13/18 15:14 07/13/18 15:14 07/13/18 15:14 - Laboratory Laboratory results interpreted by me: 07/13/18 13:29 Urine Blood MODERATE H Discharge - Discharge Clinical Impression: Yeast vaginitis Vaginitis Qualifiers: Chronicity: acute Qualified Code(s): N76.0 - Acute vaginitis Condition: Stable Disposition: HOME, SELF-CARE Instructions: Family Physicians / Practices Additional Instructions: VAGINITIS: Your exam shows that you have vaginitis, a vaginal infection. The infection can be caused by a many different organisms, including trichomonas or Gardnerella. The usual symptoms are vaginal irritation and discharge. The treatment is usually antibiotics such as Flagyl. Laboratory tests can determine which germ is responsible. Use the medication as prescribed. Because this infection can be transmitted sexually, your sexual partner may need to be checked and treated also. If your physician has not discussed this with you, please check before resuming sexual relations. If a culture shows gonorrhea or chlamydia, the infection must be reported to the health department. Call the doctor if you develop pelvic pain, fever, or problems with urination, or if you don't improve as expected. VAGINAL YEAST INFECTION: You have evidence of a yeast infection -- called "mariam." A vaginal yeast infection often causes itching and discharge. While not dangerous, it can be very unpleasant. A yeast infection often follows the use of powerful antibiotics. It is more likely to occur in diabetics. The treatment now is usually a single pill of Diflucan, but also an antifungal cream or suppository may be used for a few days. You do not need to avoid sexual intercourse. Recurrences are common. You can make a recurrence less likely by wearing cotton underwear and avoiding tight clothing. For mild recurrences, you can try [id number] creams or suppositories that are made specifically for yeast. If the symptoms do not resolve, you should follow up for re-examination. Sometimes treatment of the sexual partner is necessary if infections are recurrent. CEPHALOSPORINS: An antibiotic of the cephalosporin class has been prescribed. This type of antibiotic covers a wide variety of infections, including those of the skin, lungs, middle ear, and urinary tract. This antibiotic is somewhat similar to the penicillin family. In rare cases , a person who is allergic to penicillin will also be allergic to this medication. If you have had a severe allergic reaction to penicillin, and have not taken this antibiotic since that time, notify your doctor. Antibiotics which cover many germs ("broad spectrum" antibiotics) are more likely to cause diarrhea or "yeast" infections. Women prone to vaginal yeast problems may suffer an attack after taking this antibiotic. In infants, oral thrush (white spots "stuck" on the cheek) or yeast diaper rash may result. See your doctor if these problems occur. Call the doctor at once if you develop hives, itching, shortness of breath , or lightheadedness. AZITHROMYCIN: Azithromycin (Zithromax) is a broad spectrum antibiotic in the same class as erythromycin. It can treat a variety of bacterial infections, but is most frequently used for respiratory infections. Azithromycin is extremely long-lasting. It accumulates in body tissues and continues to kill bacteria for many days. In order to improve absorption, Azithromycin should be taken at least one hour before or two hours after a meal. It does not have the same strong tendency to upset the stomach as erythromycin and is usually very well tolerated. Patients who have had a rash or other true allergic reactions to erythromycin should not take this medication. Call if you develop gastrointestinal distress, severe diarrhea, rash, hives, itching, or shortness of breath. FLUCONAZOLE: Fluconazole (Diflucan) is an antifungal drug. It is useful for serious fungal infections, but is also excellent for oral or vaginal yeast infections. Diflucan interacts with some medicines. This is a concern if you are taking anticoagulants (such as Coumadin), phenytoin (Dilantin), cyclosporin, or oral hypoglycemics (such as tolbutamide, Orinase, glipizide, Glucotrol, glyburide, DiaBeta, Glynase, and Micronase). Be sure the doctor knows if you are taking one of these medicines. We don't know how Diflucan affects . If you are planning to become , discuss this with your doctor. Diflucan has few side effects. Minor side effects may include nausea, headache, or diarrhea. Call the doctor if you develop a skin rash, shortness of breath, or other new symptoms. FOLLOW-UP CARE: If you have been referred to a physician for follow-up care, call the physician s office for an appointment as you were instructed or within the next two days. If you experience worsening or a significant change in your symptoms, notify the physician immediately or return to the Emergency Department at any time for re-evaluation. Prescriptions: Fluconazole [Diflucan] 150 mg PO ONCE PRN #1 tablet PRN Reason: Referrals: [facility] [Provider Group] - Follow up as needed
[2018-07-13 14:02] LABS: BACTERIA (WET MOUNT) 3+ BACTERIA SEEN; EPITHELIALS (WET MOUNT) 3+ EPITHELIALS SEEN; RBCS (WET MOUNT) 1+ RBCS SEEN; T.VAGINALIS (WET MOUNT) NO TRICHOMONAS SEEN; WBCS (WET MOUNT) 2+ WBCS SEEN; YEAST (WET MOUNT) YEAST SEEN
[2018-07-13 14:06] LABS: APPEARANCE,URINE CLEAR; BILIRUBIN,URINE NEGATIVE (NEGATIVE); COLOR,URINE YELLOW; GLUCOSE, URINE NEGATIVE (NEGATIVE); KETONES,URINE NEGATIVE (NEGATIVE); LEUKOCYTE ESTERASE,URINE NEGATIVE (NEGATIVE); NITRITE,URINE NEGATIVE (NEGATIVE); PROTEIN,URINE NEGATIVE (NEGATIVE); URINE SPECIFIC GRAVITY 1.017; UROBILINOGEN,URINE NEGATIVE mg/dL (<2.0)
[2018-07-13] MEDS ORDERED: LIDOCAINE 1% INJ-PF (10 MG/ML) 30 ML SDV INJ ONE (14:57)
[2018-07-13] MEDS ORDERED: CEFTRIAXONE INJ 250 MG VIAL IM ONE (14:57)
[2018-07-13] MEDS ORDERED: AZITHROMYCIN 250 MG TABLET PO ONE (14:57)
[2018-07-13 15:15] VITALS: BP 126/73
[2018-07-13 15:35] LABS: CHLAM PCR NOT DETECTED (NOT DETECT); GON PCR NOT DETECTED (NOT DETECT)
== END 2018-07-13 15:14 | disposition home or self-care (01) ==
LOC: ER 12:42
DX: B37.3 Candidiasis of vulva and vagina (principal); R35.0 Frequency of micturition; R39.15 Urgency of urination; R30.9 Painful micturition, unspecified
CPT/HCPCS: 99283; 96372; 36415; 87210; 84702; 81001; 87491; 87591; J3490; J0696

== ENCOUNTER 2018-10-13 20:23 | Emergency (ER) | payer OTHER, MEDICAID ==
[2018-10-13 20:50] VITALS: BP 119/66
--- NOTE | 2018-10-13 22:53 | ER Document Report ---
ED GI/ - General TRAVEL OUTSIDE OF THE [place] IN LAST 30 DAYS: No <NARESH GARCIA - Last Filed: 10/14/18 01:54> <LEROY CONNELL - Last Filed: 10/14/18 04:19> - General Chief Complaint: OB Problem (<20wks) Stated Complaint: LEFT ABDOMINAL, SHOULDER, NECK PAIN WEAKNESS, PELV Time Seen by Provider: 10/13/18 22:44 Notes: Patient is a 23-year-old female, at approximately 5-6 weeks gestation by last menstrual period urgency department for chief complaint of abdominal pain/ pelvic pain which is worse on the right side, she has noticed worsening over the past several days, slightly worse tonight. Denies vaginal bleeding, trauma , she reports some nausea, denies vomiting, denies. Denies dysuria, vaginal discharge. No daily medications. Past medical history of D&C and cholecystectomy. (NARESH GARCIA) - Related Data Allergies/Adverse Reactions: adhesive tape Allergy (Verified 03/20/18 07:48) latex Allergy (Verified 03/20/18 07:48) iron infusion Allergy (Severe, Uncoded 02/10/18 16:10) Hives Past Medical History - General Information source: Patient - Social History Smoking Status: Never Smoker Chew tobacco use (# tins/day): No Frequency of alcohol use: None Drug Abuse: None Lives with: Family Family History: Reviewed & Not Pertinent Patient has suicidal ideation: No Patient has homicidal ideation: No - Past Medical History Cardiac Medical History: Denies: Hx Heart Attack, Hx Hypertension Pulmonary Medical History: Denies: Hx Asthma, Hx Bronchitis, Hx COPD, Hx Pneumonia Neurological Medical History: Denies: Hx Seizures Renal/ Medical History: Denies: Hx Peritoneal Dialysis Musculoskeletal Medical History: Denies Hx Arthritis Past Surgical History: Reports: Hx Cholecystectomy, Hx Dilation and Curettage - 2 - Immunizations Immunizations up to date: Yes Hx Diphtheria, Pertussis, Tetanus Vaccination: Yes <NARESH GARCIA - Last Filed: 10/14/18 01:54> Review of Systems - Review of Systems Constitutional: No symptoms reported EENT: No symptoms reported Cardiovascular: No symptoms reported Respiratory: No symptoms reported Gastrointestinal: See HPI Genitourinary: See HPI Female Genitourinary: See HPI Musculoskeletal: No symptoms reported Skin: No symptoms reported Hematologic/Lymphatic: No symptoms reported Neurological/Psychological: No symptoms reported <ALVANARESH PERRY - Last Filed: 10/14/18 01:54> Physical Exam <JACEK GARCIAAN - Last Filed: 10/14/18 01:54> <LEROY CONNELL - Last Filed: 10/14/18 04:19> - Vital signs Vitals: Temp Pulse Resp BP Pulse Ox 98.6 F 71 16 119/66 100 10/13/18 20:47 10/13/18 20:47 10/13/18 20:47 10/13/18 20:47 10/13/18 20:47 - Notes Notes: GENERAL: Alert, interacts well. No acute distress. HEAD: Normocephalic, atraumatic. EYES: Pupils equal, round, and reactive to light. Extraocular movements intact. ENT: Oral mucosa moist, tongue midline. Oropharynx unremarkable. Airway patent. Nares patent, no nasal septal hematoma, TM's intact. NECK: Full range of motion. Supple. Trachea midline. LUNGS: Clear to auscultation bilaterally, no wheezes, rales, or rhonchi. No respiratory distress. HEART: Regular rate and rhythm. No murmur ABDOMEN: Mild generalized lower abdominal tenderness, slightly worse on the right,, nonspecific, no guarding, no rigidity, no rebound tenderness. No specific McBurney's point tenderness. GENITOURINARY: Deferred EXTREMITIES: Moves all 4 extremities spontaneously. No edema, normal radial and dorsalis pedis pulses bilaterally. No cyanosis. BACK: no cervical, thoracic, lumbar midline tenderness. No saddle anesthesia, normal distal neurovascular exam. NEUROLOGICAL: Alert and oriented x3. Normal speech. [cranial nerves II through XII grossly intact]. PSYCH: Normal affect, normal mood. SKIN: Warm, dry, normal turgor. No rashes or lesions noted. (NARESH GARCIA) Course - Laboratory Result Diagrams: 10/13/18 22:20 10/13/18 22:20 <ALVAJACEK PERRYAN - Last Filed: 10/14/18 01:54> - Laboratory Result Diagrams: 10/13/18 22:20 10/13/18 22:20 <LEROY CONNELL - Last Filed: 10/14/18 04:19> - Re-evaluation Re-evalutation: Review of triage labs orders performed. CBC shows borderline anemia, no leukocytosis, chemistry unremarkable. HCG is elevated at 1786. Lipase is normal. RhoGam was not obtained in triage but patient is not bleeding. Urinalysis shows mild elevated specific gravity but is otherwise unremarkable. Ultrasound shows no intrauterine gestation. Left ovary visualized, right ovary unfortunately is not visualized because this is the location of patient's pain. Unfortunately with elevated hCG and no intrauterine there is a possibility of ectopic . I called and spoke with Dr. Lugo, [employer] taxation agent, she states she will come evaluate the patient. (NARESH GARCIA) 10/14/18 04:18 Methotrexate given by OB RN as directed by Dr. Lugo. Pt. cleared for d/c by Dr. Lugo (LEROY CONNELL) - Vital Signs Vital signs: Temp Pulse Resp BP Pulse Ox 98.6 F 71 16 119/66 100 10/13/18 20:47 10/13/18 20:47 10/13/18 20:47 10/13/18 20:47 10/13/18 20:47 - Laboratory Laboratory results interpreted by me: 10/13/18 10/13/18 10/13/18 22:20 22:20 22:20 Hgb 11.9 L Hct 34.8 L RDW 14.4 H Alkaline Phosphatase 36 L Beta HCG, Quant 1786.70 H Urine Ketones TRACE H Urine Ascorbic Acid 20 H Discharge <NARESH GARCIA - Last Filed: 10/14/18 01:54> <LEROY CONNELL - Last Filed: 10/14/18 04:19> - Discharge Clinical Impression: Miscarriage Condition: Stable Disposition: HOME, SELF-CARE Instructions: Miscarriage ([facility]) Additional Instructions: You have been unfortunately seen and treated in the emergency department for miscarriage. You need to follow-up with the [employer] in the next 24-48 hours. Please call their office tomorrow to make an appointment. Phone number will be provided in this packet. Please take Zofran as prescribed for vomiting. Please return to the emergency room for any other concerning symptom Referrals: GARY ALTAMIRANO, [ACTIVE STAFF] - Follow up as needed
[2018-10-13 22:54] LABS: ABSOLUTE BASOPHILS # (AUTO) 0.1 10^3/uL (0.0-0.2); ABSOLUTE EOSINOPHILS # (AUTO) 0.1 10^3/uL (0.0-0.6); ABSOLUTE LYMPHOCYTES (AUTO) 2.5 10^3/uL (0.5-4.7); ABSOLUTE MONOCYTES (AUTO) 0.7 10^3/uL (0.1-1.4); ABSOLUTE NEUT (AUTO) 2.7 10^3/uL (1.7-8.2); AMORPHOUS SEDIMENT,URINE TRACE /HPF; APPEARANCE,URINE SLIGHTLY-CLOUDY; BASOPHILS % (AUTO) 1.1 % (0-2); BILIRUBIN,URINE NEGATIVE (NEGATIVE); COLOR,URINE YELLOW; EOSINOPHILS % (AUTO) 2.4 % (0-6); GLUCOSE, URINE NEGATIVE (NEGATIVE); HEMATOCRIT 34.8 % (36.0-47.0); HEMOGLOBIN 11.9 g/dL (12.0-15.5); KETONES,URINE TRACE mg/dL (NEGATIVE); LEUKOCYTE ESTERASE,URINE NEGATIVE (NEGATIVE); LYMPHOCYTES % (AUTO) 40.6 % (13-45); MEAN CORPUSCULAR HEMOGLOBIN 31.1 pg (27.0-33.4); MEAN CORPUSCULAR HGB CONC 34.2 g/dL (32.0-36.0); MEAN CORPUSCULAR VOLUME 91 fl (80-97); MONOCYTES % (AUTO) 11.3 % (3-13); NITRITE,URINE NEGATIVE (NEGATIVE); PLATELET COUNT 189 10^3/uL (150-450); PROTEIN,URINE NEGATIVE (NEGATIVE); RED BLOOD COUNT 3.82 10^6/uL (3.72-5.28); RED CELL DISTRIBUTION WIDTH 14.4 % (11.5-14.0); SEGMENTED NEUTROPHILS % (AUTO) 44.6 % (42-78); TOTAL CELLS COUNTED % (AUTO) 100 %; URINE SPECIFIC GRAVITY 1.024; UROBILINOGEN,URINE NEGATIVE mg/dL (<2.0); WHITE BLOOD COUNT 6.1 10^3/uL (4.0-10.5)
[2018-10-13 23:05] LABS: ALANINE AMINOTRANSFERASE 15 U/L (9-52); ALBUMIN 3.8 g/dL (3.5-5.0); ALKALINE PHOSPHATASE 36 U/L (38-126); ANION GAP 10 (5-19); ASPARTATE AMINO TRANSFERASE 18 U/L (14-36); BILIRUBIN,DIRECT 0.1 mg/dL (0.0-0.4); BILIRUBIN,TOTAL 0.3 mg/dL (0.2-1.3); BLOOD UREA NITROGEN 10 mg/dL (7-20); CALCIUM 8.9 mg/dL (8.4-10.2); CARBON DIOXIDE 26 mmol/L (22-30); CHLORIDE 107 mmol/L (98-107); GLUCOSE 90 mg/dL (75-110); LIPASE 241.4 U/L (23-300); POTASSIUM 4.3 mmol/L (3.6-5.0); SODIUM 143.2 mmol/L (137-145); TOTAL PROTEIN 6.8 g/dL (6.3-8.2)
--- NOTE | 2018-10-14 01:12 | RADIOLOGY REPORT (SQ) ---
US PELVIS HISTORY: Query early . Right-sided pelvic pain. COMPARISON: None. TECHNIQUE: Grayscale, color Doppler, and spectral Doppler ultrasound images of the pelvis were obtained. FINDINGS: The uterus is anteverted and measures 10.0 x 5.2 x 6.6 cm. No intrauterine is seen. The cervix is closed and measures 3.5 cm in length. The left ovary measures 2.9 x 1.8 x 3.0 cm and contains normal color Doppler flow. The right ovary was not well visualized. No free fluid is seen in the pelvis. IMPRESSION: 1. No IUP seen. Recommend short-term follow-up imaging. 2. Right ovary was not well visualized. Left ovary is normal.
[2018-10-14] MEDS ORDERED: METHOTREXATE SODIUM INJ/PF 50 MG/2 ML IM ONE (02:35)
--- NOTE | 2018-10-14 02:38 | PDOC H&P ---
History of Present Illness Patient complains of: Patient complaining of right-sided pelvic pain with a positive home test History of Present Illness: MAURICIO ZHOU is a 23 year old presented to [facility] emergency department, complaining of right-sided abdominal pain for approximately 2 days. Patient stated that the pain was sharp in nature and intermittent. Patient denies nausea/vomiting fever/chills. Her last menstrual period was September 03, which would make her approximately 6 weeks EGA. She denies any vaginal bleeding. Past Medical History LMP: 09/03 Menses: Regular Gynecological Infection: No Obstetrical History: none Spontaneous Year: Weeks: 6 Delivery: Curettage, Other 2 Year: ,018 Weeks: 6 Delivery: Curettage, Other 3 Year: 018 Weeks: 38 Delivery: Spontaneous Vaginal Delivery - Demise prior to delivery Cardiac Medical History: Denies: Myocardial Infarction, Hypertension Pulmonary Medical History: Denies: Asthma, Bronchitis, Chronic Obstructive Pulmonary Disease (COPD), Pneumonia Neurological Medical History: Denies: Seizures Musculoskeltal Medical History: Denies: Arthritis Past Surgical History Past Surgical History: Reports: Cholecystectomy, Other - Suction D&C x2 Social History Lives with: Family Smoking Status: Never Smoker Frequency of Alcohol Use: Rare Hx Recreational Drug Use: No Family History Family History: Reviewed & Not Pertinent Parental Family History Reviewed: No Children Family History Reviewed: No Sibling(s) Family History Reviewed.: No Medication/Allergy Home Medications: Fluconazole [Diflucan] 150 mg PO ONCE PRN #1 tablet 07/13/18 Allergies/Adverse Reactions: adhesive tape Allergy (Verified 03/20/18 07:48) latex Allergy (Verified 03/20/18 07:48) iron infusion Allergy (Severe, Uncoded 02/10/18 16:10) Hives Review of Systems Cardiovascular: ABSENT: as per HPI, chest pain, dyspnea on exertion, edema, orthropnea, palpitations, other Respiratory: ABSENT: as per HPI, cough, dyspnea, hemoptysis, sputum, other Gastrointestinal: ABSENT: as per HPI, abdominal pain, bloating, coffee ground emesis, constipation, diarrhea, dysphagia, heartburn, hematemesis, hematochezia , melena, nausea, vomiting, other Genitourinary: ABSENT: as per HPI, difficulty urinating, dysuria, hematuria, nocturia, other Musculoskeletal: ABSENT: as per HPI, back pain, deformity, joint swelling, muscle weakness, other Psychiatric: ABSENT: as per HPI, anxiety, depression, hallucinations, homidical ideation, suicidal ideation, other Physical Exam - Physical Exam Vital Signs: Temp Pulse Resp BP Pulse Ox 98.6 F 71 16 119/66 100 10/13/18 20:47 10/13/18 20:47 10/13/18 20:47 10/13/18 20:47 10/13/18 20:47 Intake & Output 10/12/18 10/13/18 10/14/18 06:59 06:59 06:59 Weight 55.6 kg General appearance: PRESENT: no acute distress Respiratory exam: PRESENT: clear to auscultation jeramy Cardiovascular exam: PRESENT: RRR GI/Abdominal exam: PRESENT: normal bowel sounds, tenderness - Mild tenderness on the right Psychiatric exam: ABSENT: agitated, anxious, appropriate affect, depressed, flat affect, homicidal ideation, manic, normal mood, suicidal ideation, unusual affect, other Result Laboratory Results: 10/13/18 22:20 10/13/18 22:20 10/13/18 10/13/18 10/13/18 22:20 22:20 22:20 WBC 6.1 RBC 3.82 Hgb 11.9 L Hct 34.8 L MCV 91 MCH 31.1 MCHC 34.2 RDW 14.4 H Plt Count 189 Seg Neutrophils % 44.6 Lymphocytes % 40.6 Monocytes % 11.3 Eosinophils % 2.4 Basophils % 1.1 Absolute Neutrophils 2.7 Absolute Lymphocytes 2.5 Absolute Monocytes 0.7 Absolute Eosinophils 0.1 Absolute Basophils 0.1 Sodium 143.2 Potassium 4.3 Chloride 107 Carbon Dioxide 26 Anion Gap 10 BUN 10 Creatinine 0.53 Est GFR ( Amer) > 60 Est GFR (Non-Af Amer) > 60 Glucose 90 Calcium 8.9 Total Bilirubin 0.3 AST 18 ALT 15 Alkaline Phosphatase 36 L Total Protein 6.8 Albumin 3.8 Lipase 241.4 Urine Color YELLOW Urine Appearance SLIGHTLY-CLOUDY Urine pH 6.0 Ur Specific [place] 1.024 Urine Protein NEGATIVE Urine Glucose (UA) NEGATIVE Urine Ketones TRACE H Urine Blood NEGATIVE Urine Nitrite NEGATIVE Ur Leukocyte Esterase NEGATIVE Urine WBC (Auto) 2 Urine RBC (Auto) 1 Impressions: Transvaginal US 10/13/18 22:51 IMPRESSION: 1. No IUP seen. Recommend short-term follow-up imaging. 2. Right ovary was not well visualized. Left ovary is normal. Assessment & Plan - Diagnosis (1) Ectopic without intrauterine Qualifiers: Location of ectopic : tubal Laterality: right Qualified Code(s) : O00.101 - Right tubal without intrauterine Is this a current diagnosis for this admission?: Yes - Time Time Spent: 30 to 50 Minutes Medications reviewed and adjusted accordingly: Yes Anticipated discharge: Home Within: within 24 hours Disposition: Stable - Plan Summary Plan Summary: Plan: 1. Methotrexate 50 mg/m2 IM--patient has a history of 2 missed abortions with D &C, as well as an intrauterine demise at 38 weeks 2. Patient provided methotrexate/ectopic protocol, which includes possible side effects. 3. Patient has been given dates to follow-up in the office. 4. Patient given precautions to be aware of which would suggest that she would be trending towards surgery. Patient given instructions not to eat or drink if she believes that she may require surgery 5. Patient expressed understanding of all instructions given.
[2018-10-14] MEDS ORDERED: ONDANSETRON ODT 4 MG TAB (6 TAB/ER DISP) PO PRN (02:40)
[2018-10-14] MEDS ORDERED: PROMETHAZINE HCL 25 MG TABLET PO ONE (02:50)
[2018-10-14] MEDS ORDERED: DISPOSABLE IM PRN (03:06)
[2018-10-14] MEDS ORDERED: METHOTREXATE SODIUM IM PRN (03:06)
== END 2018-10-14 05:07 | disposition home or self-care (01) ==
LOC: ER 20:23
DX: O03.9 Complete or unspecified spontaneous abortion without complication (principal); R10.2 Pelvic and perineal pain; R11.0 Nausea; Z91.048 Other nonmedicinal substance allergy status; Z91.040 Latex allergy status; Z88.8 Allergy status to other drugs, medicaments and biological substances
CPT/HCPCS: 99284; 96372; 36415; 84702; 83690; 85025; 80053; 81001; 76817; 93976; J9260

== ENCOUNTER → 2018-10-19 | Outpatient (CLI) | payer OTHER, MEDICAID ==
[2018-10-19 14:26] LABS: ABSOLUTE EOSINOPHILS # (AUTO) 0.1 10^3/uL (0.0-0.6); ABSOLUTE LYMPHOCYTES (AUTO) 1.7 10^3/uL (0.5-4.7); ABSOLUTE MONOCYTES (AUTO) 0.4 10^3/uL (0.1-1.4); BASOPHILS % (AUTO) 0.7 % (0-2); EOSINOPHILS % (AUTO) 1.3 % (0-6); HEMATOCRIT 35.4 % (36.0-47.0); LYMPHOCYTES % (AUTO) 32.3 % (13-45); MEAN CORPUSCULAR HEMOGLOBIN 30.7 pg (27.0-33.4); MEAN CORPUSCULAR HGB CONC 33.8 g/dL (32.0-36.0); MEAN CORPUSCULAR VOLUME 91 fl (80-97); PLATELET COUNT 190 10^3/uL (150-450); RED BLOOD COUNT 3.91 10^6/uL (3.72-5.28); RED CELL DISTRIBUTION WIDTH 14.7 % (11.5-14.0); SEGMENTED NEUTROPHILS % (AUTO) 57.7 % (42-78); TOTAL CELLS COUNTED % (AUTO) 100 %; WHITE BLOOD COUNT 5.1 10^3/uL (4.0-10.5)
[2018-10-19 14:57] LABS: ALANINE AMINOTRANSFERASE 19 U/L (9-52); ALBUMIN 3.9 g/dL (3.5-5.0); ALKALINE PHOSPHATASE 35 U/L (38-126); ANION GAP 12 (5-19); ASPARTATE AMINO TRANSFERASE 16 U/L (14-36); BILIRUBIN,DIRECT 0.1 mg/dL (0.0-0.4); BILIRUBIN,TOTAL 0.3 mg/dL (0.2-1.3); BLOOD UREA NITROGEN 5 mg/dL (7-20); CALCIUM 9.2 mg/dL (8.4-10.2); CARBON DIOXIDE 24 mmol/L (22-30); CHLORIDE 104 mmol/L (98-107); GLUCOSE 88 mg/dL (75-110); POTASSIUM 3.7 mmol/L (3.6-5.0); SODIUM 140.4 mmol/L (137-145); TOTAL PROTEIN 6.9 g/dL (6.3-8.2)
== END ==
LOC: OD 13:59
PROVIDERS: ATTEND Obstetrics & Gynecology
DX: O00.90 Unspecified ectopic pregnancy without intrauterine pregnancy (principal)
CPT/HCPCS: 36415; 80053; 84702; 85025

== ENCOUNTER → 2018-10-21 | Outpatient (CLI) | payer OTHER, MEDICAID | LOC: OD 13:29 | PROVIDERS: ATTEND Obstetrics & Gynecology | DX: O00.90 Unspecified ectopic pregnancy without intrauterine pregnancy (principal) | CPT/HCPCS: 36415; 84702 ==

== ENCOUNTER 2018-11-12 20:16 | Emergency (ER) | payer OTHER, MEDICAID ==
[2018-11-12 22:37] LABS: ABSOLUTE BASOPHILS # (AUTO) 0.1 10^3/uL (0.0-0.2); ABSOLUTE EOSINOPHILS # (AUTO) 0.2 10^3/uL (0.0-0.6); ABSOLUTE LYMPHOCYTES (AUTO) 2.6 10^3/uL (0.5-4.7); ABSOLUTE MONOCYTES (AUTO) 0.7 10^3/uL (0.1-1.4); ABSOLUTE NEUT (AUTO) 3.1 10^3/uL (1.7-8.2); BASOPHILS % (AUTO) 1.1 % (0-2); EOSINOPHILS % (AUTO) 2.9 % (0-6); HEMATOCRIT 37.3 % (36.0-47.0); HEMOGLOBIN 12.5 g/dL (12.0-15.5); MEAN CORPUSCULAR HEMOGLOBIN 31.2 pg (27.0-33.4); MEAN CORPUSCULAR HGB CONC 33.6 g/dL (32.0-36.0); MEAN CORPUSCULAR VOLUME 93 fl (80-97); MONOCYTES % (AUTO) 10.9 % (3-13); PLATELET COUNT 251 10^3/uL (150-450); RED BLOOD COUNT 4.01 10^6/uL (3.72-5.28); RED CELL DISTRIBUTION WIDTH 13.7 % (11.5-14.0); SEGMENTED NEUTROPHILS % (AUTO) 46.1 % (42-78); TOTAL CELLS COUNTED % (AUTO) 100 %; WHITE BLOOD COUNT 6.8 10^3/uL (4.0-10.5)
[2018-11-12 22:50] LABS: ALANINE AMINOTRANSFERASE 15 U/L (9-52); ALBUMIN 4.2 g/dL (3.5-5.0); ALKALINE PHOSPHATASE 40 U/L (38-126); ANION GAP 9 (5-19); ASPARTATE AMINO TRANSFERASE 20 U/L (14-36); BILIRUBIN,DIRECT 0.2 mg/dL (0.0-0.4); BILIRUBIN,TOTAL 0.3 mg/dL (0.2-1.3); BLOOD UREA NITROGEN 10 mg/dL (7-20); CALCIUM 9.1 mg/dL (8.4-10.2); CARBON DIOXIDE 27 mmol/L (22-30); CHLORIDE 103 mmol/L (98-107); GLUCOSE 82 mg/dL (75-110); POTASSIUM 4.5 mmol/L (3.6-5.0); SODIUM 138.8 mmol/L (137-145); TOTAL PROTEIN 7.3 g/dL (6.3-8.2)
--- NOTE | 2018-11-12 23:52 | RADIOLOGY REPORT (SQ) ---
CLINICAL HISTORY: lower ab pain, preg COMPARISON: October 13, 2018. 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 Endometrial stripe measures 6 mm. There is a small amount of fluid within the lower uterine segment versus a tiny, approximately 6 mm gestational sac. There is no yolk sac or pole. Ovaries are unremarkable. IMPRESSION: Tiny focus of fluid or minimal gestational sac in the lower uterine segment. No pole or yolk sac.
--- NOTE | 2018-11-13 00:37 | ER Document Report ---
ED General - General Chief Complaint: Vag Bleeding, +preg <12wks Stated Complaint: VAGINAL BLEEDING/CRAMPING Time Seen by Provider: 11/12/18 22:21 Notes: Patient is a 23-year-old at unknown gestational age who presents with ongoing vaginal spotting. Patient was diagnosed with a right-sided ectopic on 10/13/2018, received 2 doses of methotrexate, apparently left town for the holidays and had an ultrasound and labs performed at an emergency department in her hometown where she was told that she had a intrauterine gestational sac with associated pole without cardiac activity and a quantitative beta hCG of 4800. Patient returns has she has continued to have vaginal bleeding since that time which she describes as similar to atypical menstrual cycle bleed. She does note some very mild, aching, intermittent cramping lower abdominal pain that is not currently present. She has not yet followed up with the INDUSTRIAL ENGINEERING TECHNICIAN regarding today's concerns. No fever or constitutional symptoms. TRAVEL OUTSIDE OF THE [place] IN LAST 30 DAYS: No - Related Data Allergies/Adverse Reactions: adhesive tape Allergy (Verified 03/20/18 07:48) latex Allergy (Verified 03/20/18 07:48) iron infusion Allergy (Severe, Uncoded 02/10/18 16:10) Hives Past Medical History - General Information source: Patient - Social History Smoking Status: Never Smoker Frequency of alcohol use: None Drug Abuse: None Lives with: Spouse/Significant other Family History: Reviewed & Not Pertinent Patient has suicidal ideation: No Patient has homicidal ideation: No - Past Medical History Cardiac Medical History: Denies: Hx Heart Attack, Hx Hypertension Pulmonary Medical History: Denies: Hx Asthma, Hx Bronchitis, Hx COPD, Hx Pneumonia Neurological Medical History: Denies: Hx Seizures Renal/ Medical History: Denies: Hx Peritoneal Dialysis Musculoskeletal Medical History: Denies Hx Arthritis Past Surgical History: Reports: Hx Cholecystectomy, Hx Dilation and Curettage - 2, Other - Suction D&C x2 - Immunizations Immunizations up to date: Yes Hx Diphtheria, Pertussis, Tetanus Vaccination: Yes Review of Systems - Review of Systems Notes: Constitutional: Negative for fever. HENT: Negative for sore throat. Eyes: Negative for visual changes. Cardiovascular: Negative for chest pain. Respiratory: Negative for shortness of breath. Gastrointestinal: Positive for lower abdominal pain Genitourinary: Positive for vaginal bleeding Musculoskeletal: Negative for back pain. Skin: Negative for rash. Neurological: Negative for headaches, weakness or numbness. 10 point ROS negative except as marked above and in HPI. Physical Exam - Vital signs Vitals: Temp Pulse Resp BP Pulse Ox 98.7 F 65 16 120/68 99 11/12/18 20:21 11/12/18 20:21 11/12/18 20:21 11/12/18 20:21 11/12/18 20:21 Interpretation: Normal Notes: PHYSICAL EXAMINATION: GENERAL: Well-appearing, well-nourished and in no acute distress. HEAD: Atraumatic, normocephalic. EYES: Pupils equal round and reactive to light, extraocular movements intact, sclera anicteric, conjunctiva are normal. ENT: nares patent, oropharynx clear without exudates. Moist mucous membranes. NECK: Normal range of motion, supple without lymphadenopathy LUNGS: Breath sounds clear to auscultation bilaterally and equal. No wheezes rales or rhonchi. HEART: Regular rate and rhythm without murmurs ABDOMEN: Soft, nontender, normoactive bowel sounds. No guarding, no rebound. No masses appreciated. EXTREMITIES: Normal range of motion, no pitting or edema. No cyanosis. NEUROLOGICAL: No focal neurological deficits. Moves all extremities spontaneously and on command. PSYCH: Normal mood, normal affect. SKIN: Warm, Dry, normal turgor, no rashes or lesions noted. Course - Re-evaluation Re-evalutation: 11/13/18 00:35 Patient presents with ongoing vaginal spotting very mild lower abdominal cramping after being diagnosed with a right ectopic on 13 October, r eceiving a total of 2 doses of methotrexate. The patient appears to have a very small gestational sac in the lower uterine segment at this point. No evidence of ectopic . Quant has fallen to 300. Patient's abdominal exam is completely benign without any areas of focal tenderness, rebound or guarding. I discussed this case with Dr. Conway the INDUSTRIAL ENGINEERING TECHNICIAN on-call who has requested the patient be followed up in clinic tomorrow morning. Patient and significant other at the bedside are in agreement with this plan, verbalized the need for OB follow-up in the morning. - Vital Signs Vital signs: Temp Pulse Resp BP Pulse Ox 98.5 F 60 18 114/56 L 96 11/13/18 00:49 11/13/18 00:49 11/13/18 00:49 11/13/18 00:49 11/13/18 00:49 - Laboratory Result Diagrams: 11/12/18 22:25 11/12/18 22:25 Laboratory results interpreted by me: 11/12/18 11/12/18 20:31 22:25 Beta HCG, Quant 300.73 H Urine HCG, Qual POSITIVE H - Diagnostic Test Radiology reviewed: Reports reviewed Discharge - Discharge Clinical Impression: Hemorrhage, , early, Inevitable Condition: Good Disposition: HOME, SELF-CARE Additional Instructions: Please follow-up with the INDUSTRIAL ENGINEERING TECHNICIAN tomorrow. Please contact the clinic first thing in the morning to get your appointment time as they are expecting your phone call. Please return to the emergency department immediately if you d evelop significant abdominal pain, bleeding through more than 2 pads an hour for more than 2 hours in a row, fever of greater than 100.4 F, or any other symptoms that are worrisome to you. Prescriptions: Ibuprofen [Motrin 800 mg Tablet] 800 mg PO Q8H PRN #30 tab PRN Reason: Forms: Return to Work Referrals: TORIN CONWAY MD [ACTIVE STAFF] - Follow up tomorrow
[2018-11-13 00:53] VITALS: BP 114/56
== END 2018-11-13 00:53 | disposition home or self-care (01) ==
LOC: ER 20:16
DX: O20.9 Hemorrhage in early pregnancy, unspecified (principal); Z91.040 Latex allergy status
CPT/HCPCS: 36415; 76817; 80053; 81025; 84702; 85025; 99284

== ENCOUNTER 2018-11-24 11:01 | Emergency (ER) | payer OTHER, MEDICAID ==
--- NOTE | 2018-11-24 11:34 | ER Document Report ---
ED Medical Screen (RME) - General Chief Complaint: Abdominal Pain Stated Complaint: ABDOMINAL PAIN Time Seen by Provider: 11/24/18 11:27 Notes: 23-year-old female patient emergency department complaining of right upper quadrant and right flank pain/epigastric pain. History of gallstone pancreatitis. History of recent ectopic . Did not have surgery. Does not have a gallbladder. Still has appendix. Several episodes of diarrhea. I have greeted and performed a rapid initial assessment of this patient. A comprehensive ED assessment and evaluation of the patient, analysis of test results and completion of the medical decision making process will be conducted by additional ED providers. TRAVEL OUTSIDE OF THE [place] IN LAST 30 DAYS: No - Related Data Allergies/Adverse Reactions: adhesive tape Allergy (Verified 11/24/18 11:03) latex Allergy (Verified 11/24/18 11:03) iron infusion Allergy (Severe, Uncoded 11/24/18 11:03) Hives Past Medical History - Past Medical History Cardiac Medical History: Denies: Hx Heart Attack, Hx Hypertension Pulmonary Medical History: Denies: Hx Asthma, Hx Bronchitis, Hx COPD, Hx Pneumonia Neurological Medical History: Denies: Hx Seizures Renal/ Medical History: Denies: Hx Peritoneal Dialysis Musculoskeltal Medical History: Denies Hx Arthritis Past Surgical History: Reports: Hx Cholecystectomy, Hx Dilation and Curettage - 2, Other - Suction D&C x2 - Immunizations Immunizations up to date: Yes Hx Diphtheria, Pertussis, Tetanus Vaccination: Yes History of Influenza Vaccine for 08/2017 - 01/2018 Season: No Review of Systems - Review of Systems Notes: Review of systems positive for the following: Abdominal pain, nausea, diarrhea, flank pain Physical Exam - Vital signs Vitals: Temp Pulse Resp BP Pulse Ox 98.3 F 74 16 124/61 99 11/24/18 11:11 11/24/18 11:11 11/24/18 11:11 11/24/18 11:11 11/24/18 11:11 Interpretation: Normal - General General appearance: Appears well, Alert - Respiratory Respiratory status: No respiratory distress Chest status: Nontender Breath sounds: Normal Chest palpation: Normal - Cardiovascular Rhythm: Regular Heart sounds: Normal auscultation Murmur: No - Abdominal Inspection: Normal Distension: No distension Bowel sounds: Normal Tenderness: Tender, Other - Epigastric right upper quadrant tenderness. Course - Vital Signs Vital signs: Temp Pulse Resp BP Pulse Ox 98.3 F 74 16 124/61 99 11/24/18 11:11 11/24/18 11:11 11/24/18 11:11 11/24/18 11:11 11/24/18 11:11
[2018-11-24 12:24] LABS: APPEARANCE,URINE CLEAR; BILIRUBIN,URINE NEGATIVE (NEGATIVE); COLOR,URINE YELLOW; GLUCOSE, URINE NEGATIVE (NEGATIVE); KETONES,URINE 20 mg/dL (NEGATIVE); LEUKOCYTE ESTERASE,URINE NEGATIVE (NEGATIVE); NITRITE,URINE NEGATIVE (NEGATIVE); PROTEIN,URINE NEGATIVE (NEGATIVE); URINE SPECIFIC GRAVITY 1.028
[2018-11-24] MEDS ORDERED: ONDANSETRON HCL INJ/PF 4 MG/2 ML SDV IV ONE (13:01)
[2018-11-24] MEDS ORDERED: NORMAL SALINE 1000 ML 1,000 ML IV ONE (13:01)
--- NOTE | 2018-11-24 13:39 | ER Document Report ---
ED General - General Stated Complaint: ABDOMINAL PAIN Time Seen by Provider: 11/24/18 11:27 Mode of Arrival: Ambulatory Information source: Patient, [facility] Records Notes: 22-year-old female with a recent history of miscarriage presents with epigastric abdominal pain, nausea, vomiting and diarrhea. Patient states that she has experienced generalized abdominal cramping, multiple episodes of nonbloody nonbilious emesis and 2 episodes of nonbloody diarrhea over the last few days. Patient was seen in October and November for possible ectopic . She received methotrexate and her quant was trended. Patient was last seen on November 12, 2018 where her quant was 300. She states that she has followed up with CLINICAL PROGRAMMER Dr. Koenig last week. Patient also complaining of right flank pain, dysuria. She denies vaginal bleeding, vaginal discharge. TRAVEL OUTSIDE OF THE [place] IN LAST 30 DAYS: No - HPI Onset: Other Onset/Duration: Intermittent Quality of pain: Cramping Severity: Moderate Associated symptoms: Diarrhea, Nausea, Vomiting. denies: Chest pain, Chills, Fever, Shortness of breath Relieved by: Denies Similar symptoms previously: Yes Recently seen / treated by doctor: Yes - Related Data Allergies/Adverse Reactions: adhesive tape Allergy (Verified 11/24/18 11:03) latex Allergy (Verified 11/24/18 11:03) iron infusion Allergy (Severe, Uncoded 11/24/18 11:03) Hives Past Medical History - General Information source: Patient - Social History Smoking Status: Never Smoker Chew tobacco use (# tins/day): No Frequency of alcohol use: None Drug Abuse: None Lives with: Spouse/Significant other Family History: Reviewed & Not Pertinent Patient has suicidal ideation: No Patient has homicidal ideation: No - Past Medical History Cardiac Medical History: Denies: Hx Heart Attack, Hx Hypertension Pulmonary Medical History: Denies: Hx Asthma, Hx Bronchitis, Hx COPD, Hx Pneumonia Neurological Medical History: Denies: Hx Seizures Renal/ Medical History: Denies: Hx Peritoneal Dialysis Musculoskeletal Medical History: Denies Hx Arthritis Past Surgical History: Reports: Hx Cholecystectomy, Hx Dilation and Curettage - 2, Hx Genitourinary Surgery - D/C x2, Other - Suction D&C x2 - Immunizations Immunizations up to date: Yes Hx Diphtheria, Pertussis, Tetanus Vaccination: Yes Review of Systems - Review of Systems Notes: REVIEW OF SYSTEMS: CONSTITUTIONAL : Denies fever, chills, or sweats. Denies recent illness. Denies weight loss, recent hospitalizations. EENT: Denies visual changes, eye pain. Denies sore throat, oral lesions, difficulty swallowing. CARDIOVASCULAR: Denies chest pain. Denies palpitations. Denies lower extremity edema. RESPIRATORY: Denies cough. Denies shortness of breath, wheezing. GASTROINTESTINAL: Denies abdominal distention. Denies blood in vomitus, stools, or per rectum. Denies black, tarry stools. Denies constipation. GENITOURINARY: Denies difficulty urinating, painful urination, frequency, b lood in urine, or vaginal discharge. MUSCULOSKELETAL: Denies neck pain or stiffness. Denies joint pain or swelling. SKIN: Denies rash, lesions or sores. HEMATOLOGIC : Denies easy bruising or bleeding. LYMPHATIC: Denies swollen glands. NEUROLOGICAL: Denies confusion or altered mental status. Denies loss of consciousness. Denies dizziness or lightheadedness. Denies headache. Denies weakness or paralysis. Denies problems difficulty with ambulation, slurred speech. Denies sensory loss, numbness, or tingling. Denies seizures. PSYCHIATRIC: Denies anxiety or stress. Denies depression, suicidal ideation, or homicidal ideation. Denies visual or auditory hallucinations. Physical Exam - Vital signs Vitals: Temp Pulse Resp BP Pulse Ox 98.3 F 74 16 124/61 99 11/24/18 11:11 11/24/18 11:11 11/24/18 11:11 11/24/18 11:11 11/24/18 11:11 - Notes Notes: PHYSICAL EXAMINATION: GENERAL: Well-appearing, well-nourished and in no acute distress. HEAD: Atraumatic, normocephalic. EYES: Pupils equal round and reactive to light, extraocular movements intact, conjunctiva are normal. ENT: Nares patent, oropharynx clear without exudates. Moist mucous membranes. NECK: Normal range of motion, supple without lymphadenopathy LUNGS: Breath sounds clear to auscultation bilaterally and equal. No wheezes rales or rhonchi. HEART: Regular rate and rhythm without murmurs ABDOMEN: Generalized abdominal tenderness with palpation. No guarding, no rebound. No masses appreciated. Female : Pelvic exam; External genitalia unremarkable. Speculum exam with thin white discharge. Vaginal wall unremarkable. Os closed. No cervical motion tenderness. No adnexal tenderness or masses appreciated. Swabs obtained for gonorrhea, chlamydia and wet prep. Musculoskeletal: Normal range of motion, no pitting or edema. No cyanosis. NEUROLOGICAL: Cranial nerves grossly intact. Normal speech, normal gait. Normal sensory, motor exams PSYCH: Normal mood, normal affect. SKIN: Warm, Dry, normal turgor, no rashes or lesions noted. Course - Re-evaluation Re-evalutation: 11/24/18 15:23 Laboratory 11/24/18 11/24/18 11/24/18 12:00 12:00 12:00 WBC Cancelled RBC Cancelled Hgb Cancelled Hct Cancelled MCV Cancelled MCH Cancelled MCHC Cancelled RDW Cancelled Plt Count Cancelled Seg Neutrophils % Cancelled Lymphocytes % Cancelled Monocytes % Cancelled Eosinophils % Cancelled Basophils % Cancelled Absolute Neutrophils Cancelled Absolute Lymphocytes Cancelled Absolute Monocytes Cancelled Absolute Eosinophils Cancelled Absolute Basophils Cancelled Platelet Estimate Cancelled Sodium Cancelled Potassium Cancelled Chloride Cancelled Carbon Dioxide Cancelled Anion Gap Cancelled BUN Cancelled Creatinine Cancelled Est GFR ( Amer) Cancelled Est GFR (Non-Af Amer) Cancelled Glucose Cancelled Calcium Cancelled Total Bilirubin Cancelled Direct Bilirubin Cancelled Neonat Total Bilirubin Cancelled Neonat Direct Bilirubin Cancelled Neonat Indirect Bili Cancelled AST Cancelled ALT Cancelled Alkaline Phosphatase Cancelled Total Protein Cancelled Albumin Cancelled Lipase Cancelled Beta HCG, Quant Cancelled Total Beta HCG Cancelled Urine Color YELLOW Urine Appearance CLEAR Urine pH 5.0 Ur Specific [place] 1.028 Urine Protein NEGATIVE Urine Glucose (UA) NEGATIVE Urine Ketones 20 H Urine Blood NEGATIVE Urine Nitrite NEGATIVE Urine Bilirubin NEGATIVE Urine Urobilinogen 2.0 H Ur Leukocyte Esterase NEGATIVE Urine WBC (Auto) 1 Urine RBC (Auto) 0 Squamous Epi Cells Auto 1 Urine Mucus (Auto) MANY Urine Ascorbic Acid 20 H Urine HCG, Qual Bacteria (Wet Prep) Trichomonas (Wet Prep) Vaginal WBC Vaginal RBC Vaginal Yeast Slides for Path Review Cancelled 11/24/18 11/24/18 11/24/18 12:00 13:50 13:50 WBC 4.5 RBC 4.04 Hgb 12.5 Hct 37.0 MCV 91 MCH 31.0 MCHC 33.9 RDW 13.5 Plt Count 187 Seg Neutrophils % 50.5 Lymphocytes % 30.5 Monocytes % 16.5 H Eosinophils % 1.7 Basophils % 0.8 Absolute Neutrophils 2.3 Absolute Lymphocytes 1.4 Absolute Monocytes 0.7 Absolute Eosinophils 0.1 Absolute Basophils 0.0 Platelet Estimate Sodium 140.3 Potassium 4.2 Chloride 107 Carbon Dioxide 27 Anion Gap 6 BUN 11 Creatinine 0.48 L Est GFR ( Amer) > 60 Est GFR (Non-Af Amer) > 60 Glucose 95 Calcium 8.4 Total Bilirubin 0.4 Direct Bilirubin 0.2 Neonat Total Bilirubin Not Reportable Neonat Direct Bilirubin Not Reportable Neonat Indirect Bili Not Reportable AST 24 ALT 24 Alkaline Phosphatase 43 Total Protein 6.9 Albumin 4.0 Lipase 258.5 Beta HCG, Quant 55.16 H Total Beta HCG POSITIVE Urine Color Urine Appearance Urine pH Ur Specific [place] Urine Protein Urine Glucose (UA) Urine Ketones Urine Blood Urine Nitrite Urine Bilirubin Urine Urobilinogen Ur Leukocyte Esterase Urine WBC (Auto) Urine RBC (Auto) Squamous Epi Cells Auto Urine Mucus (Auto) Urine Ascorbic Acid Urine HCG, Qual POSITIVE H Bacteria (Wet Prep) Trichomonas (Wet Prep) Vaginal WBC Vaginal RBC Vaginal Yeast Slides for Path Review 11/24/18 14:03 WBC RBC Hgb Hct MCV MCH MCHC RDW Plt Count Seg Neutrophils % Lymphocytes % Monocytes % Eosinophils % Basophils % Absolute Neutrophils Absolute Lymphocytes Absolute Monocytes Absolute Eosinophils Absolute Basophils Platelet Estimate Sodium Potassium Chloride Carbon Dioxide Anion Gap BUN Creatinine Est GFR ( Amer) Est GFR (Non-Af Amer) Glucose Calcium Total Bilirubin Direct Bilirubin Neonat Total Bilirubin Neonat Direct Bilirubin Neonat Indirect Bili AST ALT Alkaline Phosphatase Total Protein Albumin Lipase Beta HCG, Quant Total Beta HCG Urine Color Urine Appearance Urine pH Ur Specific [place] Urine Protein Urine Glucose (UA) Urine Ketones Urine Blood Urine Nitrite Urine Bilirubin Urine Urobilinogen Ur Leukocyte Esterase Urine WBC (Auto) Urine RBC (Auto) Squamous Epi Cells Auto Urine Mucus (Auto) Urine Ascorbic Acid Urine HCG, Qual Bacteria (Wet Prep) 4+ BACTERIA SEEN Trichomonas (Wet Prep) NO TRICHOMONAS SEEN Vaginal WBC 2+ WBCS SEEN Vaginal RBC 1+ RBCS SEEN Vaginal Yeast NO YEAST SEEN Slides for Path Review Temp Pulse Resp BP Pulse Ox 98.3 F 74 16 124/61 99 11/24/18 11:11 11/24/18 11:11 11/24/18 11:11 11/24/18 11:11 11/24/18 11:11 Obstetrics Ultrasound 11/24/18 13:28 IMPRESSION: SIMPLE CYST IN THE RIGHT OVARY. NO VISUALIZED INTRA- OR EXTRAUTERINE . bHCG LEVEL TOO LOW TO EXPECT VISUALIZATION OF . ECTOPIC CANNOT BE EXCLUDED. HOWEVER, THE HCG LEVEL HAS DECREASED PROGRESSIVELY (VALUE ON 10/21/2018 WAS 3,595 AND VALUE ON 11/12/2018 WAS 300). FOLLOW-UP CLINICALLY INDICATED. 11/24/18 15:24 22-year-old female with a recent history of miscarriage presents with epigastric abdominal pain, nausea, vomiting and diarrhea. Patient states that she has experienced generalized abdominal cramping, multiple episodes of nonbloody nonbilious emesis and 2 episodes of nonbloody diarrhea over the last few days. Patient was seen in October and November for possible ectopic . She received methotrexate and her quant was trended. Patient was last seen on November 12, 2018 where her quant was 300. She states that she has followed up with CLINICAL PROGRAMMER Dr. Koenig last week. Patient also complaining of right flank pain, dysuria. And later in her ED course right lower quadrant abdominal pain. She denies vaginal bleeding, vaginal discharge. Vital signs stable and within normal limits upon arrival. Patient does not appear toxic or dehydrated. She does appear ill and is persistently vomiting upon arrival. This resolved after receiving Zofran, Pepcid and IV fluids. Pelvic exam was performed and significant for thin white discharge, no vaginal bleeding. Wet prep shows bacterial vaginosis. CBC, CMP, urinalysis is unremarkable. Beta quant is now 50. Transvaginal ultrasound pending. 11/24/18 15:49 Patient expresses concern for appendicitis. Patient abdominal exam is negative for guarding, rebound. Negative McBurney's, heel strike, Rovsing. She is without fever, leukocytosis or any other abnormality which would make me concerned for acute appendicitis at this time. I did discuss with her the risks of radiation and advised that if abdominal pain continues she should return in 12-24 hours for repeat abdominal exam. The majority of the patient's abdominal pain is in the epigastric region. Lipase within normal limits. 11/24/18 18:17 Patient's transvaginal ultrasound is significant for right ovarian cyst. Does not show an intrauterine or extrauterine . Patient was evaluated and treated as appropriate for the patient's presenting symptoms and complaint, with consideration of any critical or life threatening conditions that may be associated with their obtained history and exam as noted above. All results were discussed with patient. Patient provided the opportunity to ask questions, and express concerns. Patient was educated on treatments based on their presumed diagnosis as noted above. At this time we will discharge the patient with return precautions and follow-up recommendations. Verbal discharge instructions given a the bedside. Medication warnings reviewed. Patient is in agreement with this plan and has verbalized understanding of return precautions. After careful consideration I feel that that patient can be safely discharged from the emergency department, they were advised to followup with a primary care physician in 2-3 days. Dictation on this chart was performed using voice recognition software and may result in unintended grammatical, spelling, syntax or errors. - Vital Signs Vital signs: Temp Pulse Resp BP Pulse Ox 98.6 F 77 16 126/69 H 100 11/24/18 16:26 11/24/18 16:26 11/24/18 16:26 11/24/18 16:26 11/24/18 16:26 - Laboratory Result Diagrams: 11/24/18 13:50 11/24/18 13:50 Laboratory results interpreted by me: 11/24/18 11/24/18 11/24/18 12:00 12:00 13:50 Monocytes % 16.5 H Creatinine Beta HCG, Quant Urine Ketones 20 H Urine Urobilinogen 2.0 H Urine Ascorbic Acid 20 H Urine HCG, Qual POSITIVE H 11/24/18 13:50 Monocytes % Creatinine 0.48 L Beta HCG, Quant 55.16 H Urine Ketones Urine Urobilinogen Urine Ascorbic Acid Urine HCG, Qual - Diagnostic Test Radiology reviewed: Image reviewed, Reports reviewed Discharge - Discharge Clinical Impression: Nausea vomiting and diarrhea, Bacterial vaginosis, Generalized abdominal pain, Ovarian cyst, right Condition: Good Disposition: HOME, SELF-CARE Instructions: Abdominal Pain ([facility]), Diarrhea, Nonspecific ([facility]), Intravenous (IV) Fluids ([facility]), Observation for Appendicitis ([facility]), Ovarian Cyst ([facility]), Vagin osis, Bacterial ([facility]), Viral Syndrome ([facility]), Vomiting ([facility]) Additional Instructions: You are being treated for bacterial vaginosis, an overgrowth of normal bacteria in the vagina. You are being sent home on an antibiotic called metronidazole. Take exactly as directed. Never drink alcohol while taking this antibiotic. Please return if you develop abdominal pain, fever greater than 101F, some vomiting, or any other symptoms that are concerning to you. Your ultrasound showed a large right ovarian cyst. These can be painful. Your symptoms are likely due to a viral illness and should resolve in the next several days. You can take [id number] loperamide also known as Imodium as needed for diarrhea per box instructions. Continue to stay hydrated with plenty of solution such as Gatorade or Pedialyte. You are being prescribed Zofran to take as needed for nausea and vomiting. Please return if you develop severe abdominal pain, pass out, become unable to tolerate any oral fluids for 12 more hours, or any other symptoms that are concerning to you. Your hormone level is now 50 down from 300 on your previous visit. Please follow-up with CL[facility] PROGRAMMER as scheduled. Prescriptions: Famotidine [Pepcid 40 mg Tablet] 40 mg PO DAILY #14 tablet Ibuprofen [Motrin 600 Mg Tablet] 600 mg PO TID #15 tablet Metronidazole [Flagyl 500 mg Tablet] 500 mg PO BID 7 Days #14 tablet Ondansetron [Zofran Odt 4 mg Tablet] 1 tab PO Q4H PRN #15 tab.rapdis PRN Reason: For Nausea/Vomiting Forms: Return to Work
[2018-11-24] MEDS ORDERED: FAMOTIDINE INJ/PF 20 MG/2 ML SDV IV ONE (13:46)
[2018-11-24 14:21] LABS: BACTERIA (WET MOUNT) 4+ BACTERIA SEEN; RBCS (WET MOUNT) 1+ RBCS SEEN; T.VAGINALIS (WET MOUNT) NO TRICHOMONAS SEEN; WBCS (WET MOUNT) 2+ WBCS SEEN; YEAST (WET MOUNT) NO YEAST SEEN
[2018-11-24 14:25] LABS: ABSOLUTE EOSINOPHILS # (AUTO) 0.1 10^3/uL (0.0-0.6); ABSOLUTE LYMPHOCYTES (AUTO) 1.4 10^3/uL (0.5-4.7); ABSOLUTE MONOCYTES (AUTO) 0.7 10^3/uL (0.1-1.4); ABSOLUTE NEUT (AUTO) 2.3 10^3/uL (1.7-8.2); BASOPHILS % (AUTO) 0.8 % (0-2); EOSINOPHILS % (AUTO) 1.7 % (0-6); HEMOGLOBIN 12.5 g/dL (12.0-15.5); LYMPHOCYTES % (AUTO) 30.5 % (13-45); MEAN CORPUSCULAR HGB CONC 33.9 g/dL (32.0-36.0); MEAN CORPUSCULAR VOLUME 91 fl (80-97); MONOCYTES % (AUTO) 16.5 % (3-13); PLATELET COUNT 187 10^3/uL (150-450); RED BLOOD COUNT 4.04 10^6/uL (3.72-5.28); RED CELL DISTRIBUTION WIDTH 13.5 % (11.5-14.0); SEGMENTED NEUTROPHILS % (AUTO) 50.5 % (42-78); TOTAL CELLS COUNTED % (AUTO) 100 %; WHITE BLOOD COUNT 4.5 10^3/uL (4.0-10.5)
[2018-11-24 14:32] LABS: ALANINE AMINOTRANSFERASE 24 U/L (9-52); ALKALINE PHOSPHATASE 43 U/L (38-126); ANION GAP 6 (5-19); ASPARTATE AMINO TRANSFERASE 24 U/L (14-36); BILIRUBIN,DIRECT 0.2 mg/dL (0.0-0.4); BILIRUBIN,TOTAL 0.4 mg/dL (0.2-1.3); BLOOD UREA NITROGEN 11 mg/dL (7-20); CALCIUM 8.4 mg/dL (8.4-10.2); CARBON DIOXIDE 27 mmol/L (22-30); CHLORIDE 107 mmol/L (98-107); GLUCOSE 95 mg/dL (75-110); LIPASE 258.5 U/L (23-300); POTASSIUM 4.2 mmol/L (3.6-5.0); SODIUM 140.3 mmol/L (137-145); TOTAL PROTEIN 6.9 g/dL (6.3-8.2)
[2018-11-24 15:44] LABS: CHLAM PCR NOT DETECTED (NOT DETECT); GON PCR NOT DETECTED (NOT DETECT)
[2018-11-24] MEDS ORDERED: METOCLOPRAMIDE HCL INJ/PF 10 MG/2 ML SDV IV ONE (15:48)
[2018-11-24] MEDS ORDERED: MORPHINE SULFATE 10 MG/ML INJ IV ONE (15:48)
[2018-11-24] MEDS ORDERED: DIPHENHYDRAMINE HCL 50 MG/ML VIAL IV ONE (15:49)
[2018-11-24] MEDS ORDERED: KETOROLAC TROMETHAMINE INJ/PF 30 MG/1 ML SDV IV ONE (15:53)
--- NOTE | 2018-11-24 16:06 | RADIOLOGY REPORT (SQ) ---
EXAM DESCRIPTION: U/S OB TRANSVAGINAL W/O DOP COMPLETED DATE/TIME: 11/24/2018 3:54 pm REASON FOR STUDY: abd pain h/o recent ectopic COMPARISON: 11/12/2018. TECHNIQUE: Transvaginal static and realtime grayscale images acquired of the pelvis. Additional duglas cted spectral and color Doppler images recorded. All images stored on PACs. [facility]. LIMITATIONS: None. FINDINGS: UTERUS: No visualized intrauterine . RIGHT ADNEXA: Normal ovary with normal vascular flow. No adnexal free fluid. 3.5 cm simple ovarian cyst. LEFT ADNEXA: Normal ovary with normal vascular flow. No adnexal free fluid. No adnexal masses. FREE FLUID: None. OTHER: No other significant finding. IMPRESSION: SIMPLE CYST IN THE RIGHT OVARY. NO VISUALIZED INTRA- OR EXTRAUTERINE . bHCG LEVEL TOO LOW TO EXPECT VISUALIZATION OF . ECTOPIC CANNOT BE EXCLUDED. HOWEVER, THE HCG LEVEL HAS DECREASED PROGRESSIVELY (VALUE ON 12/22/2017 WAS 3,595 AND VALUE ON 11/12/2018 WAS 300). FOLLOW-UP CLINICALLY INDICATED. TECHNICAL DOCUMENTATION: JOB ID: [id number] [employer]- All Rights Reserved Reading location - IP/workstation name: [email or web address]
[2018-11-24 16:29] VITALS: BP 126/69
== END 2018-11-24 16:33 | disposition home or self-care (01) ==
LOC: ER 11:01
DX: N76.0 Acute vaginitis (principal); B96.89 Other specified bacterial agents as the cause of diseases classified elsewhere; N83.291 Other ovarian cyst, right side; R10.84 Generalized abdominal pain; R11.2 Nausea with vomiting, unspecified; R19.7 Diarrhea, unspecified; R30.0 Dysuria; Z91.048 Other nonmedicinal substance allergy status; Z91.040 Latex allergy status; Z88.8 Allergy status to other drugs, medicaments and biological substances; Z90.49 Acquired absence of other specified parts of digestive tract; Z87.59 Personal history of other complications of pregnancy, childbirth and the puerperium
CPT/HCPCS: 99284; 96361; 96374; 96375; 36415; 87210; 84702; 83690; 85025; 81025; 80053; 81001; 87491; 87591; 76817; J1200; J1885; J2765; J2270; J2405; J7030; S0028